=== PATIENT | male | born 1950 | race Caucasian/White ===

== ENCOUNTER 2017-03-09 12:15 | Emergency (ER) | payer MEDICARE ==
[~2017-03-09] VITALS: Ht 182.9 cm; Wt 80.7 kg
[~2017-03-09 12:15] MED LIST: ASPI325 PO; Aspir 8181 MG PO; Caffeine200 MG PO; Cardizem LA240 MG PO
[2017-03-09 12:48] LABS: BASOPHILS ABSOLUTE AUTO 0.07 K/mm3 (0.00-0.23); BASOPHILS PERCENT AUTO 1 % (0-2); EOSINOPHILS ABSOLUTE AUTO 0.16 K/mm3 (0.00-0.68); EOSINOPHILS PERCENT AUTO 1 % (0-6); Hemoglobin 14.6 g/dL (13.5-17.5); IMMATURE GRAN ABSOLUTE AUTO 0.09 K/mm3 (0.00-0.10); IMMATURE GRAN PERCENT AUTO 1 % (0-1); LYMPHOCYTES ABSOLUTE AUTO 2.49 K/mm3 (0.84-5.20); LYMPHOCYTES PERCENT AUTO 22 % (21-46); MONOCYTES ABSOLUTE AUTO 1.01 K/mm3 (0.16-1.47); MONOCYTES PERCENT AUTO 9 % (4-13); Mean Corpuscular HGB Conc 32.4 g/dL (31.5-36.5); Mean Corpuscular Volume 102 fL (80-100); Mean Platelet Volume 11.2 fL (9.1-12.4); NEUTROPHILS ABSOLUTE AUTO 7.42 K/mm3 (1.96-9.15); NEUTROPHILS PERCENT AUTO 66 % (41-73); Platelet Count 179 K/mm3 (150-400); RDW Coefficient Variation 13.1 % (11.7-14.2); RDW Standard Deviation 49.2 fL (35.1-46.3); Red Blood Cell Count 4.42 M/mm3 (4.30-5.90); White Blood Cell Count 11.24 K/mm3 (4.00-11.30)
[2017-03-09 13:00] LABS: Alanine Aminotransfer (ALT/SGP 18 U/L (12-78); Albumin, Blood 4.2 g/dL (3.4-5.0); Albumin/Globulin Ratio 1.1 (0.8-1.8); Alk Phos 106 U/L (50-136); Anion Gap 16 mmol/L (6-16); Aspartate Aminotrans (AST/SGOT 13 U/L (12-37); Bilirubin, Total 0.4 mg/dL (0.1-1.0); Blood Urea Nitrogen 43 mg/dL (8-24); Bun/Creatinine Ratio 15.8 (12.0-20.0); CO2, Blood 16 mmol/L (21-32); Calcium, Blood 8.9 mg/dL (8.5-10.1); Chloride, Blood 108 mmol/L (98-108); Creatinine, Blood 2.73 mg/dL (0.60-1.20); Ethanol (Alcohol), Blood, Med 111 mg/dL; Globulin, Blood 3.9 g/dL (2.2-4.0); Glomerular Filtration Rate 25 (60-); Glucose, Blood 105 mg/dL (70-99); Potassium, Blood 3.9 mmol/L (3.5-5.5); Sodium, Blood 140 mmol/L (136-145); Total Protein, Blood 8.1 g/dL (6.4-8.2); Troponin I <0.015 ng/mL (0.000-0.040)
[2017-03-09 13:36] LABS: Magnesium, Blood 2.5 mg/dL (1.6-2.4)
[2017-12-08] MEDS ORDERED: HYDHCL25 PO (17:41)
[2017-12-08] MEDS ORDERED: LITH300C PO (17:42)
[2017-12-08] MEDS ORDERED: TRAZ50 PO (17:44)
[2018-01-20] MEDS ORDERED: ACET500 (13:20)
[2018-01-20] MEDS ORDERED: RENAL-VITE TAB0.8 MG (13:21)
[2018-01-20] MEDS ORDERED: Calcium Acetat667 MG PO (13:22)
[2018-01-20] MEDS ORDERED: Percocet 5-3251 EACH PO (15:44)
== END 2017-03-09 16:04 | disposition home or self-care (01) ==
LOC: ER 12:15
PROVIDERS: Emergency Medicine
DX: S00.01XA Abrasion of scalp, initial encounter (principal); I48.0 Paroxysmal atrial fibrillation; R55 Syncope and collapse; F10.129 Alcohol abuse with intoxication, unspecified; Y90.5 Blood alcohol level of 100-119 mg/100 ml; R79.89 Other specified abnormal findings of blood chemistry; W22.8XXA Striking against or struck by other objects, initial encounter; Z91.018 Allergy to other foods; Z79.82 Long term (current) use of aspirin
CPT/HCPCS: 70450; 71045; 80053; 83735; 83880; 84484; 85025; 93005; 93010; 96361; 96374; 99284; G0480; J7030

== ENCOUNTER 2017-11-10 13:59 | Inpatient (IN) | payer MEDICARE ==
[~2017-11-10] VITALS: Ht 172.7 cm; Wt 66.2 kg
[2017-11-10] MEDS ORDERED: METO25ER PO (14:53)
[2017-11-10] MEDS ORDERED: Non-Aspirin Ex500 M1 PO (14:53)
[2017-11-10 15:06] LABS: Source, Urine Clean Catch
[2017-11-10 15:13] LABS: BASOPHILS ABSOLUTE AUTO 0.03 K/mm3 (0.00-0.23); BASOPHILS PERCENT AUTO 1 % (0-2); EOSINOPHILS ABSOLUTE AUTO 0.46 K/mm3 (0.00-0.68); EOSINOPHILS PERCENT AUTO 8 % (0-6); Hematocrit 30.2 % (37.0-53.0); Hemoglobin 9.3 g/dL (13.5-17.5); IMMATURE GRAN ABSOLUTE AUTO 0.03 K/mm3 (0.00-0.10); IMMATURE GRAN PERCENT AUTO 1 % (0-1); LYMPHOCYTES ABSOLUTE AUTO 1.03 K/mm3 (0.84-5.20); LYMPHOCYTES PERCENT AUTO 18 % (21-46); MONOCYTES ABSOLUTE AUTO 0.58 K/mm3 (0.16-1.47); MONOCYTES PERCENT AUTO 10 % (4-13); Mean Corpuscular HGB 31.5 pg (26.0-34.0); Mean Corpuscular HGB Conc 30.8 g/dL (31.5-36.5); Mean Corpuscular Volume 102 fL (80-100); NEUTROPHILS ABSOLUTE AUTO 3.76 K/mm3 (1.96-9.15); NEUTROPHILS PERCENT AUTO 64 % (41-73); Platelet Count 157 K/mm3 (150-400); RDW Coefficient Variation 17.4 % (11.7-14.2); RDW Standard Deviation 65.9 fL (35.1-46.3); Red Blood Cell Count 2.95 M/mm3 (4.30-5.90); White Blood Cell Count 5.89 K/mm3 (4.00-11.30)
[2017-11-10 15:15] LABS: Appearance, Urine Clear (Clear); Bilirubin, Urine Neg (Neg); Blood, Urine 5+ (Neg); Color, Urine Yellow (P-Yellow); Glucose Qualitative, Urine 2+ (Neg); Ketones, Urine Neg (Neg); Leukocyte Esterase, Urine 2+ (Neg); Nitrite, Urine Neg (Neg); Protein, Urine 3+ (Neg); Specific Gravity, Urine 1.015 (1.003-1.022); Urobilinogen, Urine NORM (Normal)
[2017-11-10 15:27] LABS: International Normalized Ratio 1.07
[2017-11-10 15:29] LABS: Red Blood Cells, Urine TNTC /hpf (0-2)
[2017-11-10 15:30] LABS: Bacteria Not Seen /hpf; Squamous Epithelial Cells Not Seen /hpf (Few)
[2017-11-10 15:34] LABS: Magnesium, Blood 2.1 mg/dL (1.6-2.4)
[2017-11-10 15:35] LABS: Albumin, Blood 3.8 g/dL (3.4-5.0); Albumin/Globulin Ratio 1.1 (0.8-1.8); Bilirubin, Total 0.2 mg/dL (0.1-1.0); Bun/Creatinine Ratio 20.9 (12.0-20.0); Calcium, Blood 7.2 mg/dL (8.5-10.1); Creatinine, Blood 5.64 mg/dL (0.60-1.20); Globulin, Blood 3.6 g/dL (2.2-4.0); Phosphorus, Blood 7.5 mg/dL (2.5-4.9); Potassium, Blood 4.7 mmol/L (3.5-5.5); Total Protein, Blood 7.4 g/dL (6.4-8.2)
[2017-11-10 17:37] LABS: BASOPHILS ABSOLUTE AUTO 0.03 K/mm3 (0.00-0.23); BASOPHILS PERCENT AUTO 1 % (0-2); EOSINOPHILS ABSOLUTE AUTO 0.51 K/mm3 (0.00-0.68); EOSINOPHILS PERCENT AUTO 8 % (0-6); Hematocrit 27.2 % (37.0-53.0); Hemoglobin 8.7 g/dL (13.5-17.5); IMMATURE GRAN ABSOLUTE AUTO 0.02 K/mm3 (0.00-0.10); IMMATURE GRAN PERCENT AUTO 0 % (0-1); LYMPHOCYTES ABSOLUTE AUTO 1.16 K/mm3 (0.84-5.20); LYMPHOCYTES PERCENT AUTO 19 % (21-46); MONOCYTES ABSOLUTE AUTO 0.81 K/mm3 (0.16-1.47); MONOCYTES PERCENT AUTO 13 % (4-13); Mean Corpuscular HGB 32.2 pg (26.0-34.0); Mean Corpuscular Volume 101 fL (80-100); Mean Platelet Volume 10.8 fL (9.1-12.4); NEUTROPHILS PERCENT AUTO 59 % (41-73); Platelet Count 144 K/mm3 (150-400); RDW Coefficient Variation 17.3 % (11.7-14.2); RDW Standard Deviation 64.1 fL (35.1-46.3); White Blood Cell Count 6.13 K/mm3 (4.00-11.30)
[2017-11-10 19:08] LABS: Albumin, Blood 3.4 g/dL (3.4-5.0); Anion Gap 11 mmol/L (6-16); Blood Urea Nitrogen 119 mg/dL (8-24); CO2, Blood 17 mmol/L (21-32); Calcium, Blood 7.5 mg/dL (8.5-10.1); Chloride, Blood 113 mmol/L (98-108); Creatinine, Blood 5.67 mg/dL (0.60-1.20); Glomerular Filtration Rate 11 (60-); Glucose, Blood 61 mg/dL (70-99); Phosphorus, Blood 6.6 mg/dL (2.5-4.9); Potassium, Blood 4.9 mmol/L (3.5-5.5); Sodium, Blood 141 mmol/L (136-145)
[2017-11-11 05:06] LABS: Hematocrit 28.6 % (37.0-53.0); Hemoglobin 9.3 g/dL (13.5-17.5)
[2017-11-11 05:36] LABS: Albumin, Blood 3.5 g/dL (3.4-5.0); Anion Gap 13 mmol/L (6-16); Blood Urea Nitrogen 119 mg/dL (8-24); Bun/Creatinine Ratio 20.5 (12.0-20.0); CO2, Blood 18 mmol/L (21-32); Calcium, Blood 7.1 mg/dL (8.5-10.1); Chloride, Blood 112 mmol/L (98-108); Creatinine, Blood 5.81 mg/dL (0.60-1.20); Glomerular Filtration Rate 10 (60-); Glucose, Blood 88 mg/dL (70-99); Potassium, Blood 4.7 mmol/L (3.5-5.5); Sodium, Blood 143 mmol/L (136-145)
[2017-11-11 06:01] LABS: Phosphorus, Blood 8.6 mg/dL (2.5-4.9)
[2017-11-12 06:04] LABS: BASOPHILS ABSOLUTE AUTO 0.04 K/mm3 (0.00-0.23); BASOPHILS PERCENT AUTO 1 % (0-2); EOSINOPHILS ABSOLUTE AUTO 0.45 K/mm3 (0.00-0.68); EOSINOPHILS PERCENT AUTO 7 % (0-6); Hematocrit 30.5 % (37.0-53.0); Hemoglobin 9.9 g/dL (13.5-17.5); IMMATURE GRAN ABSOLUTE AUTO 0.02 K/mm3 (0.00-0.10); IMMATURE GRAN PERCENT AUTO 0 % (0-1); LYMPHOCYTES ABSOLUTE AUTO 1.19 K/mm3 (0.84-5.20); LYMPHOCYTES PERCENT AUTO 19 % (21-46); MONOCYTES PERCENT AUTO 11 % (4-13); Mean Corpuscular HGB 31.5 pg (26.0-34.0); Mean Corpuscular HGB Conc 32.5 g/dL (31.5-36.5); Mean Platelet Volume 10.6 fL (9.1-12.4); NEUTROPHILS ABSOLUTE AUTO 3.94 K/mm3 (1.96-9.15); NEUTROPHILS PERCENT AUTO 62 % (41-73); Platelet Count 145 K/mm3 (150-400); RDW Coefficient Variation 17.5 % (11.7-14.2); RDW Standard Deviation 62.6 fL (35.1-46.3); Red Blood Cell Count 3.14 M/mm3 (4.30-5.90); White Blood Cell Count 6.34 K/mm3 (4.00-11.30)
[2017-11-12 06:09] LABS: Mean Corpuscular Volume 97 fL (80-100)
[2017-11-12 06:22] LABS: Bun/Creatinine Ratio 15.3 (12.0-20.0); Calcium, Blood 7.2 mg/dL (8.5-10.1); Creatinine, Blood 5.11 mg/dL (0.60-1.20); Potassium, Blood 3.8 mmol/L (3.5-5.5)
[2017-11-14 05:47] LABS: Bun/Creatinine Ratio 11.5 (12.0-20.0); Calcium, Blood 8.3 mg/dL (8.5-10.1); Creatinine, Blood 4.53 mg/dL (0.60-1.20); Potassium, Blood 3.9 mmol/L (3.5-5.5)
== END 2017-11-14 12:05 | disposition home or self-care (01) | DRG 640 ==
LOC: ER 13:59 → MEDS 14:32 → ENPENDDIS 11-14 11:33 → MEDS 11-14 12:05
PROVIDERS: Emergency Medicine; Hospitalist; Internal Medicine; Surgery
PROC: 3E0234Z Introduction of Serum, Toxoid and Vaccine into Muscle, Percutaneous Approach (ICD-10-PCS; 2017-11-10)
PROC: B5131ZA Fluoroscopy of Right Jugular Veins using Low Osmolar Contrast, Guidance (ICD-10-PCS; 2017-11-11)
PROC: 5A1D70Z Performance of Urinary Filtration, Intermittent, Less than 6 Hours Per Day (ICD-10-PCS; 2017-11-11)
PROC: 05HM33Z Insertion of Infusion Device into Right Internal Jugular Vein, Percutaneous Approach (ICD-10-PCS; principal; 2017-11-11 12:45)
PROC: 5A1D70Z Performance of Urinary Filtration, Intermittent, Less than 6 Hours Per Day (ICD-10-PCS; 2017-11-12)
PROC: 5A1D70Z Performance of Urinary Filtration, Intermittent, Less than 6 Hours Per Day (ICD-10-PCS; 2017-11-13)
DX: E87.5 Hyperkalemia (principal); N18.6 End stage renal disease; I12.0 Hypertensive chronic kidney disease with stage 5 chronic kidney disease or end stage renal disease; N13.2 Hydronephrosis with renal and ureteral calculous obstruction; F17.210 Nicotine dependence, cigarettes, uncomplicated; D63.1 Anemia in chronic kidney disease; E55.9 Vitamin D deficiency, unspecified; E83.39 Other disorders of phosphorus metabolism; Z23 Encounter for immunization; Z86.718 Personal history of other venous thrombosis and embolism; Z59.0 Homelessness
CPT/HCPCS: 36415; 71045; 77001; 80048; 80053; 80069; 81001; 83735; 84100; 85014; 85018; 85025; 85610; 85730; 87086; 90686; 93005; 93010; 96372; 96374; 96375; 96376; 99285-25; C1750; G0008; G0378; J0610; J0690; J1644; J1650; J1815; J1940; J2001; J2250; J2405; J3010; J7030

== ENCOUNTER 2017-11-22 16:43 | Emergency (ER) | payer MEDICARE ==
[~2017-11-22] VITALS: Ht 172.7 cm; Wt 73.5 kg
[~2017-11-22 16:43] MED LIST changes: +METO25ER PO; +Non-Aspirin Ex500 M1 PO
[2017-11-22] MEDS ORDERED: Cyclobenzaprine5 MG PO (20:01)
== END 2017-11-22 20:36 | disposition home or self-care (01) ==
LOC: ER 16:43
DX: S16.1XXA Strain of muscle, fascia and tendon at neck level, initial encounter (principal); I48.91 Unspecified atrial fibrillation; F17.210 Nicotine dependence, cigarettes, uncomplicated; Z91.048 Other nonmedicinal substance allergy status; Z79.899 Other long term (current) drug therapy; X58.XXXA Exposure to other specified factors, initial encounter
CPT/HCPCS: 72040; 99284-25

== ENCOUNTER 2018-02-17 15:07 | Inpatient (IN) | payer MEDICARE ==
[~2018-02-17] VITALS: Ht 172.7 cm; Wt 75.6 kg
[~2018-02-17 15:07] MED LIST changes: +ACET500 PO; +Calcium Acetat667 MG PO; +Cyclobenzaprine5 MG PO; +HYDHCL25 PO; +LITH300C PO; +Percocet 5-3251 EACH PO; +RENAL-VITE TAB0.8 MG; +TRAZ50 PO
[2018-02-17 15:33] LABS: Hematocrit 32.7 % (37.0-53.0); Hemoglobin 10.5 g/dL (13.5-17.5); Mean Corpuscular HGB 31.8 pg (26.0-34.0); Mean Corpuscular HGB Conc 32.1 g/dL (31.5-36.5); Mean Corpuscular Volume 99 fL (80-100); Mean Platelet Volume 10.4 fL (9.1-12.4); Platelet Count 160 K/mm3 (150-400); RDW Coefficient Variation 14.6 % (11.7-14.2); RDW Standard Deviation 53.2 fL (35.1-46.3); White Blood Cell Count 7.27 K/mm3 (4.00-11.30)
[2018-02-17 15:52] LABS: Albumin, Blood 2.9 g/dL (3.4-5.0); Albumin/Globulin Ratio 0.7 (0.8-1.8); Bilirubin, Total 0.5 mg/dL (0.1-1.0); Calcium, Blood 8.1 mg/dL (8.5-10.1); Creatinine, Blood 4.32 mg/dL (0.60-1.20); Globulin, Blood 3.9 g/dL (2.2-4.0); Total Protein, Blood 6.8 g/dL (6.4-8.2)
[2018-02-17 16:08] LABS: BASOPHILS PERCENT MAN 0 % (0-2); EOSINOPHILS PERCENT MAN 0 % (0-6); LYMPHOCYTES ABSOLUTE MAN 0.29 K/mm3 (0.84-5.20); LYMPHOCYTES PERCENT MAN 4 % (21-46); MONOCYTES ABSOLUTE MAN 0.07 K/mm3 (0.16-1.47); MONOCYTES PERCENT MAN 1 % (4-13); SEG NEUTROPHILS PERCENT MAN 95 % (41-73); TOTAL CELLS COUNTED 100
[2018-02-17 16:17] LABS: International Normalized Ratio 1.14; Prothrombin Time Results 11.7 Sec (9.7-11.5)
[2018-02-17 16:34] LABS: Influenza A Negative (NEGATIVE); Influenza B Negative (NEGATIVE)
--- NOTE | 2018-02-17 17:46 | NUR ---
Report received from DAYLIGHT DRILLER at this time. Anticipate pt arrival to PCU 1 shortly.
--- NOTE | 2018-02-17 18:10 | NUR ---
Pt arrived to PCU 1 from ED. Frequent, non-productive cough noted. STates he has had the cough for 2 -3 months since he stopped smoking. Afib with rate of 139 by telemetry monitoring. Blood pressure stable. Pt reports that he does not feel any abnormal fluttering or pain/discomfort in his chest. No dyspnea.
[2018-02-17 18:42] LABS: Source, Urine Voided
[2018-02-17 18:52] LABS: Bilirubin, Urine Neg (Neg); Blood, Urine 4+ (Neg); Glucose Qualitative, Urine 3+ (Neg); Ketones, Urine 1+ (Neg); Leukocyte Esterase, Urine 1+ (Neg); Nitrite, Urine Neg (Neg); Protein, Urine 3+ (Neg); Urobilinogen, Urine NORM (Normal)
[2018-02-17 18:57] LABS: Appearance, Urine Clear (Clear); Color, Urine Yellow (P-Yellow)
[2018-02-17 18:58] LABS: Bacteria Few /hpf; Squamous Epithelial Cells Not Seen /hpf (Few)
--- NOTE | 2018-02-17 21:47 | NUR ---
PM NOTE. ASSUMED CARE OF PT APROX 1900. PT IS A&Ox4, PLEASENT AND COOPERATIVE WITH CARE. PT WAS ADMITTED FOR AFIB RVR AND SEPSIS. PT'S HR HAS TRENDED DOWN TO AFIB IN THE 90'S PER HOSIERY KNITTER. TELE INTACT, BP 102/58. NO EDEMA NOTED. PT'S PERMACATH C/D/I, NO REDNESS, PAIN OR SWELLING NOTED. L/S CLEAR T/O, PT HAS OCC PRODUCTIVE COUGH. BT PRESENT AND HYPERACTIVE, ABD IS SOFT NONTENDER TO PALP. PT HAS KYPHOSIS REQUIRING EXTRA PILLOWS TO SUPPORT PT'S NECK/BACK. PT VOIDS SMALL AMOUNTS INTO URINAL WITHOUT ISSUE, PT HAS UTI WITH CULTURES PENDING (SEE LABS.) CALL LIGHT IN REACH, BED IS LOCKED AND LOW, WILL CONTINUE TO MONITOR.
[2018-02-17 22:16] LABS: Adenovirus Not Detected (NOT DETECT); Bordetella pertussis Not Detected (NOT DETECT); Chlamydophila pneumoniae Not Detected (NOT DETECT); Coronavirus 229E Not Detected (NOT DETECT); Coronavirus HKU1 Not Detected (NOT DETECT); Coronavirus NL63 Not Detected (NOT DETECT); Coronavirus OC43 Not Detected (NOT DETECT); Human Metapneumovirus Not Detected (NOT DETECT); Human Rhinovirus/Enterovirus Not Detected (NOT DETECT); Influenza A/2009-H1 Not Detected (NOT DETECT); Influenza A/H1 Not Detected (NOT DETECT); Influenza A/H3 Not Detected (NOT DETECT); Influenza B Not Detected (NOT DETECT); Mycoplasma pneumoniae Not Detected (NOT DETECT); Parainfluenza Virus 1 Not Detected (NOT DETECT); Parainfluenza Virus 2 Not Detected (NOT DETECT); Parainfluenza Virus 3 Not Detected (NOT DETECT); Parainfluenza Virus 4 Not Detected (NOT DETECT); Respiratory Syncytial Virus Not Detected (NOT DETECT)
[2018-02-17 23:49] LABS: Influenza A Not Detected (NOT DETECT)
[2018-02-18 04:37] LABS: BASOPHILS ABSOLUTE AUTO 0.02 K/mm3 (0.00-0.23); BASOPHILS PERCENT AUTO 0 % (0-2); EOSINOPHILS ABSOLUTE AUTO 0.19 K/mm3 (0.00-0.68); EOSINOPHILS PERCENT AUTO 2 % (0-6); Hemoglobin 9.1 g/dL (13.5-17.5); IMMATURE GRAN ABSOLUTE AUTO 0.05 K/mm3 (0.00-0.10); IMMATURE GRAN PERCENT AUTO 1 % (0-1); LYMPHOCYTES ABSOLUTE AUTO 1.39 K/mm3 (0.84-5.20); LYMPHOCYTES PERCENT AUTO 14 % (21-46); MONOCYTES ABSOLUTE AUTO 1.45 K/mm3 (0.16-1.47); MONOCYTES PERCENT AUTO 14 % (4-13); Mean Corpuscular HGB 31.1 pg (26.0-34.0); Mean Corpuscular HGB Conc 30.3 g/dL (31.5-36.5); Mean Platelet Volume 11.2 fL (9.1-12.4); NEUTROPHILS ABSOLUTE AUTO 7.08 K/mm3 (1.96-9.15); NEUTROPHILS PERCENT AUTO 70 % (41-73); Platelet Count 133 K/mm3 (150-400); RDW Coefficient Variation 14.8 % (11.7-14.2); RDW Standard Deviation 55.3 fL (35.1-46.3); Red Blood Cell Count 2.93 M/mm3 (4.30-5.90); White Blood Cell Count 10.18 K/mm3 (4.00-11.30)
[2018-02-18 04:43] LABS: Mean Corpuscular Volume 102 fL (80-100)
[2018-02-18 04:59] LABS: Albumin, Blood 2.6 g/dL (3.4-5.0); Albumin/Globulin Ratio 0.8 (0.8-1.8); Bilirubin, Total 0.4 mg/dL (0.1-1.0); Bun/Creatinine Ratio 11.5 (12.0-20.0); Calcium, Blood 7.7 mg/dL (8.5-10.1); Creatinine, Blood 5.31 mg/dL (0.60-1.20); Globulin, Blood 3.3 g/dL (2.2-4.0); Magnesium, Blood 2.4 mg/dL (1.6-2.4); Potassium, Blood 4.4 mmol/L (3.5-5.5); Total Protein, Blood 5.9 g/dL (6.4-8.2)
--- NOTE | 2018-02-18 06:43 | NUR ---
SHIFT SUMMARY. NO ACUTE CHANGES NOTED. PT DENIES CHEST PAIN/PRESSURE, SOB OR N/V. VS HAVE BEEN STABLE T/O SHIFT. PT HAS BEEN A 1 SBA W/FWW TO THE BATHROOM. PT'S HR HAS BEEN AFIB 90'S. CALL LIGHT IN REACH, BED IS LOCKED AND LOW, WILL CONTINUE TO MONITOR UNTIL REPORT IS GIVEN TO ONCOMING RN.
--- NOTE | 2018-02-18 08:28 | NUR ---
NURSING PCU DAYSHIFT SUMMARY: Assumed care of pt at approx 0700. A/O, pleasant, cooperative w/care, mildly QUILEUTE. Denies any pain/discomfort. Mild general weakness noted. Skin is fragile w/no breakdown seen. Tele in place, afib w/HR 100-110, no c/o CP/pressure, BP stable, no noted edema. L/S w/bibasilar crackles, O2 sat upper 90's on RA, mild dyspnea w/exertion, occ cough w/pt states is not productive at this time. Abd SNT, BT+, last BM today, voiding small amts of urine w/o difficulty. PIV x1, s/l. No s/s of acute distress at this time. Pt ambulates in room independently w/o difficulty using FWW. Denies any current needs or questions regarding plan of care. Call light in reach and pt is able to use w/o difficulty. Awaiting rounding from PMD, cont to monitor for any changes.
--- NOTE | 2018-02-18 11:25 | NUR ---
NURSING PCU DAYSHIFT TRANSFER SUMMARY: No acute changes noted t/o the a.m. Seen by PMD, transfer to medical unit w/o tele d/o received. Telephone report provided to accepting RN, denied additional questions. Pt is currently receiving HD in dialysis room, will xfer to medical unit when complete. Belongings have been sent to pt's new room assignment.
--- NOTE | 2018-02-18 13:12 | NUR ---
PT ARRIVED TO UNIT. PT ARRIVED TO UNIT AT 1300. PT IN STABLE CONDITION. WILL CONTINUE TO MONITOR.
--- NOTE | 2018-02-18 13:43 | NUR ---
Echocardiogram completed.
--- NOTE | 2018-02-18 16:59 | NUR ---
SHIFT SUMMARY NO CHANGES IN ASSESSMENT AT THIS TIME. VSS. PT RESTING IN BED. USES URINAL OR WALKS TO BATHROOM NEEDED. WILL CONTINUE TO MONITOR PT UNTIL TURNOVER IS COMPLETE.
--- NOTE | 2018-02-19 01:43 | NUR ---
DR. ROSE CALLED AND INFORMED OF BLOOD CULTURE RESULTS. PT RESULTS ARE GRAM NEGATIVE BACILLI. DR ORDERED TO CONTINUE USING PRESCRIBED ANTIBIOTIC TX.
--- NOTE | 2018-02-19 04:12 | NUR ---
SHIFT SUMMARY NO ISSUES NOTED. PT WENT TO SLEEP EARLY. PT IS AGREEABLE AND PLESANT. PT HAD NO COMPLAINTS. PT IS SLEEPING AND BREATHING EASY. CALL LIGHT IN REACH.
[2018-02-19 05:00] LABS: Hematocrit 33.8 % (37.0-53.0); Hemoglobin 10.4 g/dL (13.5-17.5)
[2018-02-19 05:39] LABS: Albumin, Blood 2.8 g/dL (3.4-5.0); Anion Gap 10 mmol/L (6-16); Blood Urea Nitrogen 53 mg/dL (8-24); CO2, Blood 28 mmol/L (21-32); Calcium, Blood 8.5 mg/dL (8.5-10.1); Chloride, Blood 102 mmol/L (98-108); Creatinine, Blood 5.28 mg/dL (0.60-1.20); Glomerular Filtration Rate 12 (60-); Glucose, Blood 103 mg/dL (70-99); Magnesium, Blood 2.5 mg/dL (1.6-2.4); Phosphorus, Blood 5.6 mg/dL (2.5-4.9); Potassium, Blood 4.4 mmol/L (3.5-5.5); Sodium, Blood 140 mmol/L (136-145)
--- NOTE | 2018-02-19 09:51 | NUR ---
DIALYSIS CALLED FLOOR RN ABOUT BRINGING PT DOWN TO THE DIALYSIS. THE PT SAID HE DIDN'T WANT TO RUN TODAY. SAID HE RAN 2 DAYS IN ROW AND FELT GOOD. HE'S K IS 4.4, NA 140.
--- NOTE | 2018-02-19 16:56 | NUR ---
Assist with pt care and contact
--- NOTE | 2018-02-19 18:03 | NUR ---
DIALYSIS 2 SETS OF BLOOD CULTURES DRAWN FROM PT'S CATH PER PROTOCAL AND TAKEN TO THE LAB.
--- NOTE | 2018-02-19 19:34 | NUR ---
SUMMARY- PT WAS CONFUSED THIS AM- THOUGHT HE WAS IN A HOTEL AND WHEN HE FOUND OUT HE WAS IN THE HOSPITAL, WAS UPSET THAT HE COULDN'T REMEMBER WHERE HE WAS LIVING. THROUGH INVESTIGATION, RN FOUND HIM TO BE RESIDING AT [facility]. PT CALLED TO ENSURE HIS BELONGINGS WERE SAFE AND NOTIFIED THEM OF HIS STATUS. CALLED PALLIATIVE CARE WHO ORDERED SOCIAL SERVICE TO AID IN PLACEMENT AFTER HOSP FOR MEMORY ISSUES. PT GOT UP AND SHOWERED INDEPENDANT WITH SET UP. TOLERATING FOOD AND FLUIDS. PT HAD BLOOD CX DRAWN AND PERMACATH CX THIS PM BY PADMA FERNANDEZ DENTAL BILLING SPECIALIST. REPORT GIVEN TO NOCS.
--- NOTE | 2018-02-20 04:21 | NUR ---
SHIFT SUMMARY PT HAS BEEN SLEEPING WELL DURING SHIFT. LAB HAS CALLED AND INFORMED OF BLOOD CULTURES HAVING GRAM NEG BACILLI. DR. ROSE WAS NOTIFIED SHIFT BEFORE AND ORDERED CONTINUE CURRENT ABX TX. PT DID WAKE UP HUNGRY AND WAS GIVEN A SNACK. PT HAD NO ACUTE CHANGES OR ISSUES. PT CURRENTLY SLEEPING AND BREATHING EASY. CALL LIGHT IN REACH.
[2018-02-20 04:50] LABS: BASOPHILS ABSOLUTE AUTO 0.04 K/mm3 (0.00-0.23); BASOPHILS PERCENT AUTO 1 % (0-2); EOSINOPHILS ABSOLUTE AUTO 0.43 K/mm3 (0.00-0.68); EOSINOPHILS PERCENT AUTO 5 % (0-6); Hematocrit 34.1 % (37.0-53.0); Hemoglobin 10.5 g/dL (13.5-17.5); IMMATURE GRAN ABSOLUTE AUTO 0.05 K/mm3 (0.00-0.10); IMMATURE GRAN PERCENT AUTO 1 % (0-1); LYMPHOCYTES ABSOLUTE AUTO 1.79 K/mm3 (0.84-5.20); LYMPHOCYTES PERCENT AUTO 21 % (21-46); MONOCYTES ABSOLUTE AUTO 0.91 K/mm3 (0.16-1.47); MONOCYTES PERCENT AUTO 11 % (4-13); Mean Corpuscular HGB 31.3 pg (26.0-34.0); Mean Corpuscular HGB Conc 30.8 g/dL (31.5-36.5); Mean Corpuscular Volume 102 fL (80-100); Mean Platelet Volume 10.7 fL (9.1-12.4); NEUTROPHILS PERCENT AUTO 62 % (41-73); Platelet Count 164 K/mm3 (150-400); RDW Coefficient Variation 14.3 % (11.7-14.2); RDW Standard Deviation 53.8 fL (35.1-46.3); Red Blood Cell Count 3.35 M/mm3 (4.30-5.90); White Blood Cell Count 8.42 K/mm3 (4.00-11.30)
[2018-02-20 05:11] LABS: Alanine Aminotransfer (ALT/SGP 46 U/L (12-78); Albumin, Blood 2.8 g/dL (3.4-5.0); Albumin/Globulin Ratio 0.7 (0.8-1.8); Alk Phos 107 U/L (50-136); Anion Gap 10 mmol/L (6-16); Aspartate Aminotrans (AST/SGOT 12 U/L (12-37); Bilirubin, Total 0.3 mg/dL (0.1-1.0); Blood Urea Nitrogen 65 mg/dL (8-24); CO2, Blood 24 mmol/L (21-32); Calcium, Blood 8.4 mg/dL (8.5-10.1); Chloride, Blood 103 mmol/L (98-108); Creatinine, Blood 6.53 mg/dL (0.60-1.20); Globulin, Blood 3.9 g/dL (2.2-4.0); Glomerular Filtration Rate 9 (60-); Glucose, Blood 92 mg/dL (70-99); Magnesium, Blood 2.6 mg/dL (1.6-2.4); Phosphorus, Blood 6.4 mg/dL (2.5-4.9); Potassium, Blood 4.8 mmol/L (3.5-5.5); Sodium, Blood 137 mmol/L (136-145); Total Protein, Blood 6.7 g/dL (6.4-8.2)
--- NOTE | 2018-02-20 15:56 | NUR ---
PATIENT A/OX4 THIS SHIFT, FOREGETFUL AT TIMES. UP WITH SBA. USES URINAL. DIALYSIS KAREN TODAY AT BEDSIDE. CONSULT CALLED TO DR. GUZMAN TO REMOVE PERMCATH AND REPLACE DUE TO SEPSIS. BLOOD CX DRAWN AGAIN THIS SHIFT. 20G IV TO R FA WNL AND SL. RECEIVING ZOSYN TO TREAT INFECTION. VSS, ON RA. NO ACUTE CHANGES THIS SHIFT.
--- NOTE | 2018-02-21 04:38 | NUR ---
SHIFT SUMMARY: PT IS ALERT AND ORIENTED. PT IS CALM AND COOPERATIVE WITH CARE. PT CALLS APPROPRIATELY. PT IS A STANDBY ASSIST TO THE BATHROOM. DR. GUZMAN IN TO REMOVE DIALYSIS CATHETER, ASSISTED WITH PROCEDURE, REMOVED WNL, PT TOLERATED WELL. PT DENIES PAIN, NAUSEA, VOMITING, AND SOB. PT SLEPT MUCH OF THE NIGHT. NO ACUTE CHANGES OR COMPLICATIONS. WILL REPORT TO DAY NURSE.
[2018-02-21 05:04] LABS: BASOPHILS ABSOLUTE AUTO 0.04 K/mm3 (0.00-0.23); BASOPHILS PERCENT AUTO 1 % (0-2); EOSINOPHILS ABSOLUTE AUTO 0.33 K/mm3 (0.00-0.68); EOSINOPHILS PERCENT AUTO 4 % (0-6); Hematocrit 32.6 % (37.0-53.0); IMMATURE GRAN ABSOLUTE AUTO 0.11 K/mm3 (0.00-0.10); IMMATURE GRAN PERCENT AUTO 1 % (0-1); LYMPHOCYTES ABSOLUTE AUTO 1.81 K/mm3 (0.84-5.20); LYMPHOCYTES PERCENT AUTO 23 % (21-46); MONOCYTES ABSOLUTE AUTO 0.78 K/mm3 (0.16-1.47); MONOCYTES PERCENT AUTO 10 % (4-13); Mean Corpuscular HGB 31.5 pg (26.0-34.0); Mean Corpuscular HGB Conc 30.7 g/dL (31.5-36.5); Mean Corpuscular Volume 103 fL (80-100); Mean Platelet Volume 10.7 fL (9.1-12.4); NEUTROPHILS PERCENT AUTO 61 % (41-73); Platelet Count 161 K/mm3 (150-400); RDW Coefficient Variation 14.4 % (11.7-14.2); RDW Standard Deviation 54.2 fL (35.1-46.3); Red Blood Cell Count 3.17 M/mm3 (4.30-5.90); White Blood Cell Count 7.87 K/mm3 (4.00-11.30)
[2018-02-21 05:23] LABS: Alanine Aminotransfer (ALT/SGP 32 U/L (12-78); Albumin, Blood 2.8 g/dL (3.4-5.0); Albumin/Globulin Ratio 0.7 (0.8-1.8); Alk Phos 100 U/L (50-136); Anion Gap 8 mmol/L (6-16); Aspartate Aminotrans (AST/SGOT 11 U/L (12-37); Bilirubin, Total 0.2 mg/dL (0.1-1.0); Blood Urea Nitrogen 57 mg/dL (8-24); Bun/Creatinine Ratio 9.8 (12.0-20.0); CO2, Blood 28 mmol/L (21-32); Calcium, Blood 8.3 mg/dL (8.5-10.1); Chloride, Blood 103 mmol/L (98-108); Creatinine, Blood 5.83 mg/dL (0.60-1.20); Globulin, Blood 3.8 g/dL (2.2-4.0); Glomerular Filtration Rate 10 (60-); Glucose, Blood 109 mg/dL (70-99); Magnesium, Blood 2.6 mg/dL (1.6-2.4); Phosphorus, Blood 6.2 mg/dL (2.5-4.9); Potassium, Blood 4.8 mmol/L (3.5-5.5); Sodium, Blood 139 mmol/L (136-145); Total Protein, Blood 6.6 g/dL (6.4-8.2)
--- NOTE | 2018-02-21 16:43 | NUR ---
SHIFT SUMMARY. THE PATIENT PRESENTED THIS MORNING WITH VITALS WNL, A&O TO SELF AND SOME SURROUNDINS, AND ANSWERS QUESTIONS APPROP. THE PATIENT STATED THAT HE WAS IS APPOINTED THAT HE NEEDED TO BE HERE AT LEAST TWO MORE DAYS. THE PATIENT IS RECEIVING IV ABX. THE PATIENT CALLS APPROP. AND IS NICE TO VISIT WITH. THE PATIENT IS RESTING AT THIS TIME, WILL CONTINUE TO MONITOR.
--- NOTE | 2018-02-22 04:14 | NUR ---
SHIFT SUMMARY NO CHANGES OVERNIGHT. PT HAS DENIED NEEDS. HE IS A/OX4, INDEPENDENT IN THE ROOM. HE DENIES PAIN. IV ABX INFUSED ORDERED. ASSESSMENT UNCHANGED. PENDING PERMACATH PLACEMENT BEFORE DISCHARGE AT THIS TIME. PT AWARE OF PLAN OF CARE. WILL CONTINUE TO MONITOR AND REPORT TO ONCOMING RN.
[2018-02-22 05:22] LABS: Hematocrit 32.8 % (37.0-53.0)
[2018-02-22 06:02] LABS: Albumin, Blood 2.8 g/dL (3.4-5.0); Anion Gap 10 mmol/L (6-16); Blood Urea Nitrogen 68 mg/dL (8-24); Bun/Creatinine Ratio 10.1 (12.0-20.0); CO2, Blood 23 mmol/L (21-32); Calcium, Blood 8.2 mg/dL (8.5-10.1); Chloride, Blood 105 mmol/L (98-108); Creatinine, Blood 6.76 mg/dL (0.60-1.20); Glomerular Filtration Rate 9 (60-); Glucose, Blood 98 mg/dL (70-99); Magnesium, Blood 2.6 mg/dL (1.6-2.4); Phosphorus, Blood 6.5 mg/dL (2.5-4.9); Potassium, Blood 4.8 mmol/L (3.5-5.5); Sodium, Blood 138 mmol/L (136-145)
--- NOTE | 2018-02-22 16:18 | NUR ---
SHIFT SUMMARY THE PATIENT PRESENTED THIS AM WITH CLEAR LUNGS, A&O X4, AND VITALS WNL. THE PATIENT CALLS APPROP. AND IS WAITING TO GO HOME, MAYBE TOMORROW. THE PATIENT IS INDEPENDENT IN HIS ROOM AND SPENDS MOST OF HIS TIME WATCHING TV. THE PATIENT IS RESTING AT THIS TIME, WILL CONTINUE TO MONITOR.
--- NOTE | 2018-02-23 04:27 | NUR ---
*SHIFT SUMMARY* PATIENT IS ALERT AND ORIENTED. PATIENT IS INDEPENDENT IN ROOM. PATIENT USES CALL LIGHT APPROPRIATELY. PATIENT USES URINAL AT BEDSIDE. PATIENT'S PLAN READS THAT IF PATIENT'S BLOOD CULTURES COME BACK NEGATIVE HE WILL DISCHARGE HOME. PATIENT IS EAGER TO BE DISCHARGED. PATIENT TAKES PILLS WHOLE. PATIENT'S DRESSING ON LEFT CHEST IS C/D/I. PATIENT REQUESTED TO HAVE SLEEPING PILL BEFORE BED. NO NEW CHANGES TO PATIENTS STATUS AT THIS TIME. CALL LIGHT WITHIN REACH. BED LOWERED AND LOCKED.
[2018-02-23 05:03] LABS: Hematocrit 36.4 % (37.0-53.0); Hemoglobin 11.3 g/dL (13.5-17.5)
[2018-02-23 05:34] LABS: Albumin, Blood 3.2 g/dL (3.4-5.0); Anion Gap 10 mmol/L (6-16); Blood Urea Nitrogen 83 mg/dL (8-24); Bun/Creatinine Ratio 10.9 (12.0-20.0); CO2, Blood 22 mmol/L (21-32); Calcium, Blood 8.2 mg/dL (8.5-10.1); Chloride, Blood 105 mmol/L (98-108); Creatinine, Blood 7.63 mg/dL (0.60-1.20); Glomerular Filtration Rate 8 (60-); Glucose, Blood 103 mg/dL (70-99); Magnesium, Blood 2.9 mg/dL (1.6-2.4); Phosphorus, Blood 7.5 mg/dL (2.5-4.9); Potassium, Blood 5.2 mmol/L (3.5-5.5); Sodium, Blood 137 mmol/L (136-145)
--- NOTE | 2018-02-23 10:23 | NUR ---
ATTEMPTING TO CALL CONSULT HAVE CALLED DR. IRENA TAVAREZ'S OFFICE NUMEROUS TIMES TO ARRANGE A CONSULT BUT THE PHONE HAS BEEN BUSY. I WILL CONTINUE TO TRY TO CALL.
--- NOTE | 2018-02-23 10:50 | NUR ---
PROVIDER CONSULT I DID GET CONSULT CALLED TO DR. TAVAREZ'S CONSULT LINE. THE ANSWERING MESSAGE STATED THAT DR. TAVAREZ WOULD NOT BE AVAILABLE UNTIL 02/27/2018. I NOTIFIED DR. FLETCHER OF THIS AT 1051 HRS.
--- NOTE | 2018-02-23 15:18 | NUR ---
PT RETRIEVED BY DAY SURGERY NURSE LA[facility]- [facility]ERENA DIALYSIS CATHETER INSTALLATION IV DRESSING CHANGED, PT TAKEN VIA HOSPITAL BED TO DAY SURGERY. PT AWARE OF THE PROCEDURE AND HAD NO FURTHER QUESTIONS. PT DENIED ANXIETY.
--- NOTE | 2018-02-23 15:53 | NUR ---
1515 Patient up to Ambulate independently FROM BED TO [facility]. UNSTABLE GAIT. STANDBY ASSIST Surgical site prepped with 2% Chlorhexidine cloth wipe. History, Chart, Medications and Allergies reviewed before start of procedure.Lungs clear T/O to Auscultation. Patient confirms NPO status and agrees with scheduled surgery. Pre-Op teaching done. Pt verbalizes understanding.
--- NOTE | 2018-02-23 17:43 | NUR ---
PT STATUS, POST SURGERY HANDOFF RECEIVED HANDOFF REPORT FROM DAY SURGERY NURSE RONNELL. PT RECEIVED NEW DIALYSIS CATHETER IN LEFT CHEST WALL, DRESSING IS C/D/I. DIALYSIS NURSE ZOFIA WILL PERFORM DIALYSIS TONIGHT. PT'S VITAL SIGNS ARE WNL AND THE PT IS AFEBRILE AT 97.3. PT IS NOT NAUSEOUS, PT DENIES PAIN.
--- NOTE | 2018-02-23 17:47 | NUR ---
SHIFT SUMMARY PT WAS MADE NPO THIS MORNING IN PREPARATION TO GO TO DAY SURGERY TO INSTALL A PERMACATH FOR DIALYSIS. THE PROCEDURE WAS PERFORMED WITHOUT INCIDENT. THE PT HAD A NEW PERMACATH INSERTED IN THE LEFT CHEST WALL. PT DENIES NAUSEA OR PAIN FOLLOWING THE PROCEDURE. DIALYSIS NURSE ALBERT WILL PERFORM DIALYSIS FOR THE PT THIS EVENING. PT IS A&O X4. POST-SURGICAL HANDOFF REPORT WAS RECEIVED FROM DAY SURGERY NURSE RONNELL. POST OP VS MONITORING PROTOCOL WILL BE OBSERVED WHEN PT IS RETURNED TO THE ROOM FROM RECOVERY. DIET WILL RESUME TOLERATED WHEN ORDERED. THE PT IS EXPECTED TO DC HOME TOMORROW.
--- NOTE | 2018-02-24 06:09 | NUR ---
*SHIFT SUMMARY* PATIENT ALERT AND ORIENTED. ALBERT ROPER CAME TO DIALYZE PATIENT AT THE BEGINING OF SHIFT. PATIENT STATED HE WAS ITCHY ALL OVER HIS BODY AND WOULD LIKE BENADRYL. CALLED HOSPITALIST, RECIEVED AND MEDICATED PATIENT SEE EMAR. PATIENT ALSO REQUESTED SLEEPING PILL. PATIENT SLEPT THROUGHOUT THE NIGHT. PATIENT USES CALL LIGHT APPROPRIATELY. BED ALARM ON FOR PATIENT THROUGHOUT THE NIGHT. PATIENT'S IV INFILTRATED AT THE BEGINING OF SHIFT, NEW IV STARTED. NO NEW ACUTE CHANGES TO PATIENT'S STATUS.
--- NOTE | 2018-02-24 09:20 | NUR ---
TRANSPORTED TO DIALYSIS VIA W/C ACCOMPANIED BY DAYRON GRIFFIN IN NO ACUTE DISTRESS
[2018-02-24 10:02] LABS: Hematocrit 32.8 % (37.0-53.0); Hemoglobin 10.4 g/dL (13.5-17.5)
[2018-02-24 10:16] LABS: Albumin, Blood 3.2 g/dL (3.4-5.0); Anion Gap 11 mmol/L (6-16); Blood Urea Nitrogen 62 mg/dL (8-24); Bun/Creatinine Ratio 10.7 (12.0-20.0); CO2, Blood 25 mmol/L (21-32); Calcium, Blood 7.8 mg/dL (8.5-10.1); Chloride, Blood 100 mmol/L (98-108); Creatinine, Blood 5.81 mg/dL (0.60-1.20); Glomerular Filtration Rate 10 (60-); Glucose, Blood 165 mg/dL (70-99); Phosphorus, Blood 6.6 mg/dL (2.5-4.9); Potassium, Blood 4.7 mmol/L (3.5-5.5); Sodium, Blood 136 mmol/L (136-145)
[2018-02-24] MEDS ORDERED: SEVE800 PO (15:03)
[2018-02-24] MEDS ORDERED: Tazicef1 G1 IV (15:04)
--- NOTE | 2018-02-24 15:34 | NUR ---
DISCHARGE NOTE PT DISCHARGED VIA W/C IN [place] AND IN NO ACUTE DISTRESS; IV DISCONTINUED INTACT. [facility] PT VERBALIZED UNDERSTANDING OF ALL FOLLOWUP AND DIALYSIS AND MEDICATION INSTRUCTIONS. TAXI VOUCHER PROVIDED FOR TRANSPORT TO [facility].
== END 2018-02-24 16:23 | disposition home or self-care (01) | DRG 314 ==
LOC: ER 15:07 → PCU 17:38 → MEDS 17:38 → PCU 18:12 → MEDS 02-18 11:20 → ENPENDDIS 02-24 10:00 → MEDS 02-24 16:23
PROVIDERS: Emergency Medicine; Internal Medicine; Internal Medicine Nephrology; Surgery; ADMIT Internal Medicine
PROC: 02HV33Z Insertion of Infusion Device into Superior Vena Cava, Percutaneous Approach (ICD-10-PCS; 2018-02-23)
PROC: B5181ZA Fluoroscopy of Superior Vena Cava using Low Osmolar Contrast, Guidance (ICD-10-PCS; 2018-02-23)
PROC: 5A1D70Z Performance of Urinary Filtration, Intermittent, Less than 6 Hours Per Day (ICD-10-PCS; 2018-02-23)
PROC: 0JH63XZ Insertion of Tunneled Vascular Access Device into Chest Subcutaneous Tissue and Fascia, Percutaneous Approach (ICD-10-PCS; principal; 2018-02-23 16:00)
DX: T82.7XXA Infection and inflammatory reaction due to other cardiac and vascular devices, implants and grafts, initial encounter (principal); N18.6 End stage renal disease; A41.59 Other Gram-negative sepsis; E87.2 Acidosis; I12.0 Hypertensive chronic kidney disease with stage 5 chronic kidney disease or end stage renal disease; N25.81 Secondary hyperparathyroidism of renal origin; Z86.718 Personal history of other venous thrombosis and embolism; I48.2 Chronic atrial fibrillation; Z87.442 Personal history of urinary calculi; F17.210 Nicotine dependence, cigarettes, uncomplicated; D63.1 Anemia in chronic kidney disease; Z99.2 Dependence on renal dialysis; E88.09 Other disorders of plasma-protein metabolism, not elsewhere classified; E86.9 Volume depletion, unspecified
CPT/HCPCS: 36415; 71046; 74176; 77001; 80053; 80069; 81001; 83605; 83735; 84100; 84484; 85014; 85018; 85025; 85610; 85730; 87040; 87070; 87077; 87086; 87186; 87205; 87486; 87581; 87633; 87798; 87804; 93005; 93010; 93308; 96361; 96365; 99285-25; C1750; J0713; J0881; J1100; J1644; J2370; J2405; J2543; J3010; J3370; J7030; J7050; Q0163

== ENCOUNTER 2018-08-08 10:01 | Day surgery (SDC) | payer MEDICARE ==
[~2018-08-08] VITALS: Ht 177.8 cm; Wt 73.8 kg
[~2018-08-08 10:01] MED LIST changes: +SERT25 PO; +SEVE800 PO; +SODPOL15SA PO; +TAMS.4ER PO; +Tazicef1 G1 IV
--- NOTE | 2018-08-08 11:41 | NUR ---
Ambulatory in Day Surgery UTILIZING WALKER. History, Chart, Medications and Allergies reviewed before start of procedure.LUNGS WITH SCATTERED RHONCHI. MOIST NON-PRODUCTIVE COUGH NOTED. SATS>90% ON RA. DUONEB GIVEN. NPO CONFIRMED.
--- NOTE | 2018-08-08 12:16 | NUR ---
PT STATES THAT HE IS TAKING A "BUS HOME." PT CURRENTLY LIVING AT [facility]. CALLED TO COMFIRM THAT THE BUS FROM THIS FACILITY WOULD BE AVAILABLE TO PT.
--- NOTE | 2018-08-08 12:33 | NUR ---
RESUMED CARE OF PATIENT FROM MOHINI BARLOW RN. REPORT RECEIVED. SPOKE WITH PATIENT ADVOCATE AND ARRANGED FOR ASSISTANCE WITH COST OF RIDE HOME TODAY VIA MEDICAL TRANSPORT TO [facility]. PATIENT INFORMED THAT WE WILL BE ABLE TO PROCEED WITH HIS PROCEDURE TODAY AND IS STATES THANK YOU. RIDE ARRANGED FOR APPROXIMATELY 3 PM.
--- NOTE | 2018-08-08 14:51 | NUR ---
Patient up to Ambulate independently. Gait steady. Pt ambulates w/FWW. Discharge instructions reviewed with patient. Patient verbalizes understanding. Copy given to patient to take home. Dressing to procedure site clean, dry, intact with no visible drainage, swelling, erythema or bruising noted. Patient States Post-Procedure ride home has been arranged through [facility]. Discharged via wheelchair to private car for ride home.
--- NOTE | 2018-08-09 10:09 | NUR ---
08/09/18 1009 Cande Redding VERIFICATIONS: EDIT CHART.
== END 2018-08-08 22:45 | disposition home or self-care (01) ==
LOC: ORSCMMR 10:01
PROVIDERS: Surgery
PROC: 05PY33Z Removal of Infusion Device from Upper Vein, Percutaneous Approach (ICD-10-PCS; principal; 2018-08-08 11:45)
PROC: 05HM33Z Insertion of Infusion Device into Right Internal Jugular Vein, Percutaneous Approach (ICD-10-PCS; principal; 2018-08-08 11:45)
PROC: B5131ZA Fluoroscopy of Right Jugular Veins using Low Osmolar Contrast, Guidance (ICD-10-PCS; principal; 2018-08-08 11:45)
DX: T82.42XA Displacement of vascular dialysis catheter, initial encounter (principal); I12.0 Hypertensive chronic kidney disease with stage 5 chronic kidney disease or end stage renal disease; N18.5 Chronic kidney disease, stage 5; I48.91 Unspecified atrial fibrillation; Z86.718 Personal history of other venous thrombosis and embolism; Z79.899 Other long term (current) drug therapy; J44.9 Chronic obstructive pulmonary disease, unspecified; Z87.891 Personal history of nicotine dependence
CPT/HCPCS: 77001; C1750; J0690; J1644; J2405; J2704; J3010; J7030

== ENCOUNTER 2018-11-29 17:04 | Emergency (ER) | payer MEDICARE ==
[~2018-11-29] VITALS: Ht 177.8 cm; Wt 73.5 kg
[2018-11-29 17:58] LABS: BASOPHILS ABSOLUTE AUTO 0.05 K/mm3 (0.00-0.23); BASOPHILS PERCENT AUTO 1 % (0-2); EOSINOPHILS ABSOLUTE AUTO 0.25 K/mm3 (0.00-0.68); EOSINOPHILS PERCENT AUTO 3 % (0-6); Hematocrit 35.3 % (37.0-53.0); Hemoglobin 11.5 g/dL (13.5-17.5); IMMATURE GRAN ABSOLUTE AUTO 0.14 K/mm3 (0.00-0.10); IMMATURE GRAN PERCENT AUTO 2 % (0-1); LYMPHOCYTES ABSOLUTE AUTO 1.21 K/mm3 (0.84-5.20); LYMPHOCYTES PERCENT AUTO 13 % (21-46); MONOCYTES ABSOLUTE AUTO 0.78 K/mm3 (0.16-1.47); MONOCYTES PERCENT AUTO 9 % (4-13); Mean Corpuscular HGB 33.6 pg (26.0-34.0); Mean Corpuscular HGB Conc 32.6 g/dL (31.5-36.5); Mean Corpuscular Volume 103 fL (80-100); Mean Platelet Volume 10.1 fL (9.1-12.4); NEUTROPHILS ABSOLUTE AUTO 6.65 K/mm3 (1.96-9.15); NEUTROPHILS PERCENT AUTO 73 % (41-73); Platelet Count 211 K/mm3 (150-400); RDW Coefficient Variation 14.1 % (11.7-14.2); RDW Standard Deviation 53.2 fL (35.1-46.3); Red Blood Cell Count 3.42 M/mm3 (4.30-5.90); White Blood Cell Count 9.08 K/mm3 (4.00-11.30)
[2018-11-29 18:14] LABS: Bilirubin, Total 0.4 mg/dL (0.1-1.0); Bun/Creatinine Ratio 9.2 (12.0-20.0); Calcium, Blood 9.2 mg/dL (8.5-10.1); Creatinine, Blood 3.36 mg/dL (0.60-1.20); Potassium, Blood 3.5 mmol/L (3.5-5.5)
[2018-11-29] MEDS ORDERED: Calcium Acetat667 MG PO (18:25)
== END 2018-11-29 20:03 | disposition home or self-care (01) ==
LOC: ER 17:04
PROVIDERS: Emergency Medicine
DX: I12.0 Hypertensive chronic kidney disease with stage 5 chronic kidney disease or end stage renal disease (principal); N18.6 End stage renal disease; Z99.2 Dependence on renal dialysis; I48.91 Unspecified atrial fibrillation; E87.8 Other disorders of electrolyte and fluid balance, not elsewhere classified; Z91.018 Allergy to other foods; Z79.899 Other long term (current) drug therapy; F17.210 Nicotine dependence, cigarettes, uncomplicated
CPT/HCPCS: 80053; 84484; 85025; 93005; 93010; 96360; 99284-25; J7030

== ENCOUNTER 2019-03-18 12:18 | Inpatient (IN) | payer OTHER, MEDICARE ==
[~2019-03-18] VITALS: Ht 175.3 cm; Wt 80.3 kg
[2019-03-18 12:56] LABS: Source, Urine Clean Catch
[2019-03-18 13:03] LABS: Bilirubin, Urine Neg (Neg); Blood, Urine 5+ (Neg); Glucose Qualitative, Urine 3+ (Neg); Ketones, Urine 1+ (Neg); Leukocyte Esterase, Urine 2+ (Neg); Nitrite, Urine Neg (Neg); Protein, Urine 3+ (Neg); Urobilinogen, Urine NORM (Normal)
[2019-03-18 13:14] LABS: Albumin, Blood 2.9 g/dL (3.4-5.0); Albumin/Globulin Ratio 0.7 (0.8-1.8); Bilirubin, Total 0.7 mg/dL (0.1-1.0); Bun/Creatinine Ratio 7.2 (12.0-20.0); Calcium, Blood 8.8 mg/dL (8.5-10.1); Creatinine, Blood 7.34 mg/dL (0.60-1.20); Globulin, Blood 4.2 g/dL (2.2-4.0); Potassium, Blood 4.2 mmol/L (3.5-5.5); Total Protein, Blood 7.1 g/dL (6.4-8.2)
[2019-03-18 13:15] LABS: Appearance, Urine Cloudy (Clear); Color, Urine Yellow (P-Yellow)
[2019-03-18 13:16] LABS: Red Blood Cells, Urine 50-100 /hpf (0-2)
[2019-03-18 13:17] LABS: Bacteria Mod /hpf; Squamous Epithelial Cells Rare /hpf (Few)
[2019-03-18 13:22] LABS: Hematocrit 29.7 % (37.0-53.0); Hemoglobin 9.5 g/dL (13.5-17.5); Mean Corpuscular HGB 32.9 pg (26.0-34.0); Mean Corpuscular Volume 103 fL (80-100); Mean Platelet Volume 11.4 fL (9.1-12.4); Platelet Count 88 K/mm3 (150-400); RDW Coefficient Variation 13.4 % (11.7-14.2); RDW Standard Deviation 50.7 fL (35.1-46.3); Red Blood Cell Count 2.89 M/mm3 (4.30-5.90); White Blood Cell Count 18.01 K/mm3 (4.00-11.30)
[2019-03-18 13:27] LABS: U Amphetamine Screen Not Detected; U Barbituate Screen Not Detected; U Benzodiazapine Screen Not Detected; U Buprenorphine Screen Not Detected; U Cannabinoids Screen Not Detected; U Cocaine Screen Not Detected; U Methadone Screen Not Detected; U Methamphetamine Screen Not Detected; U Opiates Screen DETECTED; U Oxycodone Screen Not Detected; U Phencyclidine Screen Not Detected; U Propoxyphene Screen Not Detected
[2019-03-18 13:29] LABS: Ethanol (Alcohol), Blood, Med <3 mg/dL
[2019-03-18 13:40] LABS: IMMATURE GRAN ABSOLUTE AUTO 0.25 K/mm3 (0.00-0.10); IMMATURE GRAN PERCENT AUTO 1 % (0-1)
[2019-03-18 13:43] LABS: BAND PERCENT MAN 15 % (0-8); BASOPHILS PERCENT MAN 0 % (0-2); EOSINOPHILS PERCENT MAN 0 % (0-6); LYMPHOCYTES ABSOLUTE MAN 0.72 K/mm3 (0.84-5.20); LYMPHOCYTES PERCENT MAN 4 % (21-46); METAMYELOCYTE ABSOLUTE MAN 0.36 K/mm3 (0.00-0.00); METAMYELOCYTE PERCENT MAN 2 % (0-0); MONOCYTES ABSOLUTE MAN 0.36 K/mm3 (0.16-1.47); MONOCYTES PERCENT MAN 2 % (4-13); NEUTROPHILS ABSOLUTE MAN 16.56 K/mm3 (1.96-9.15); SEG NEUTROPHILS PERCENT MAN 77 % (41-73); TOTAL CELLS COUNTED 100
[2019-03-18 13:55] LABS: Phosphorus, Blood 4.2 mg/dL (2.5-4.9)
[2019-03-18 14:24] LABS: Influenza A Negative (NEGATIVE); Influenza B Negative (NEGATIVE)
--- NOTE | 2019-03-18 15:07 | NUR ---
DIALYSIS DR ARRIAGA CALLED AND ASKED ME TO DRAW 2 SETS OF BLOOD CULTURES FROM THE PT'S HD CATHETER. PT IN THE ED. HAD THE PT SIGN A RELEASE FORM. THEN JHONNY 2 SETS OF BC PER PROTOCAL. SENT TO THE LAB FROM THE ED. PT SEEMED A&O.
--- NOTE | 2019-03-18 18:16 | NUR ---
SPOKE WITH DR. ARRIAGA PER DR. ARRIAGA CT WITH CONTRAST IS OKAY, DIALYSIS WILL BE DONE IN THE NEXT 24HRS. IF ANY QUESTIONS THEY CAN CALL HER CELL PHONE.
--- NOTE | 2019-03-18 19:04 | NUR ---
ASSUMED CARE/SHIFT SUMMARY PT ARRIVED TO ICU AT 1612. HE WAS IN AFIB, STABLE VITALS (AFIB 120'S), DENIED CP/SOB/NAUSEA. HE WAS CHILLY. HIS FINGERS AND TOES WERE DUSKY. HE WAS RECEIVING THE SECOND HALF OF A LIUTER FLUID BOLUS (EITHER HIS 2ND OR 3RD LITER), AND HIS VANCOMYCIN WAS INFUSED. HE WAS STARTED ON HEPARIN, AND RECIEVED THE BOLUS. HE STARTED COMPLAINING OF INTENSE SHARP GROIN PAIN, THAT WOULD COME IN WAVES ALMOST LIKE SPASMS. HIS KNEES DOWN WERE DUSKY, HE HAD FAINT PULSES IN HIS FEET. HIS SBP WAS IN THE 80'S AFTER THE FLUID BOLUS. I CALLED LORAINE AND WE GOT CARDIOLOGY (DR SANCHEZ) CONSULTED (TROPONIN WAS 11) AND THE FILLETER (DR GRAHAM) BECAUSE LACTIC ACID WAS 3.2 AND THE OBVIOUS SIGNS OF HYPOPERFUSION AND HYPOTENSION. BART WAS ALREADY CONSULTED AND HAD SAW THE PATIENT PRIOR TO THE DETERIORATION, DR SANCHEZ WAS ABLE TO TALK WITH HER. A CT OF THE ABODMEN AND CHEST WAS ORDERED DUE TO THE INTENSE PAIN, WITH CONTRAST. DUE TO HIS END STAGE RENAL DISEASE, BART WANTS HIM TO HAVE DIALYSIS WITHIN 24 HOURS. PRIOR TO THESE EVENTS, HE TOLD ME HE WISHES TO BE A DNR. THE CHANGE HAS BEEN MADE, PER DR MEAD. PT APPEARS TO BE MORE LETHARGIC CURRENTLY, BUT REMAINS ORIENTED. PAIN SEEMS TO HAVE SUBSIDED SOME BECAUSE HES NOT CRYING OUT ANYMORE. DR GRAHAM HAS ORDERED LEVOPHED LOW DOSE AND TO BE INFUSED THROUGH THE PERMACATH WHILE HE PUTS IN A CENTRAL LINE. GOAL IS TO MAINTAIN MAP > 65. HESHAM DOESN'T ANTIPCIATE AN INTERVENTION AT THIS TIME, THE PATIENT IS NOT AND HAS NOT EXPERIENCED CHEST PAIN, SHE WILL TREND TROPONINS AND HAVE AN ECHO DONE IN THE MORNING. PT REMAINS IN AFIB, BUT RATE IS 110-120'S; TOUCHING THE 130'S OCCASIONALY. IT WAS 140'S IN THE ER. DR. GRAHAM IS CURRENTLY INSERTING A CVC. PT RECEIEVED ZOSYN AND VANC IN ER, NEXT DOSE OF AN ANTIBIOTIC IS DUE AT 2100 (ZOSYN). BLOOD CULTURES WERE DRAWN PRIOR IN THE ER, ONE FROM VENIPUNCTURE AND ONE FROM PERMACATH. LAST YEAR IN FEBRUARY HE WAS HOSPITALIZED FOR SEPSIS, WITH A SOURCE FROM HIS PERMACATH, THAT HE HAD OPTED OUT OF CHANGING. REPORT HAS BEEN GIVEN TO JACQUELIN SHANNON.
--- NOTE | 2019-03-18 19:22 | NUR ---
DR. MCCOY, AT BEDSIDE PLACING CENTRAL LINE. R GROIN SITE. PT TOLERATING WELL.
--- NOTE | 2019-03-18 20:59 | NUR ---
START OF SHIFT: REPORT FROM LITO ROPER. MARKET GARDENER AND DR. MCCOY AT BEDSIDE FOR CL INSERTION. PT AWAKE, A+O AND VERBALIZED UNDERSTANDING OF PROCEDURE AND REASON WHY IN HOSPITAL. PT ORIENTED TO PERSON, TOWN, MONTH AND YEAR. PT WITH LEVOPHED INFUSING INTO DIALYSIS (RED) PORT AT 2mcg\\min, AND HEPARIN INFUSING INTO RIGHT PERIPH AT 13u/kg. PT IN A-FIB C/ HR 116-153. VERBAL ORDER FROM DR. MCCOY TO KEEP PT'S MAP AT 70. PT ON 02 2L N/C, LS CLEAR. PT DESATS SLIGHTLY WHEN FALLS ASLEEP. PT PUPILS 2mm KEENAN, PT FOLLOWS DIRECTIONS. BRIDGE CONSTRUCTION INSPECTOR STRONG AND EQUAL. A CENTRAL LINE WAS PLACED AT APPRX 1925 TO RIGHT GROIN C/ VERBAL OKAY TO USE PER DR. MCCOY. PT DOES C/O OF NECK PAIN WITH ANY MOVEMENT. MADE AWARE CONSIDERING PT ADMIT S/S C/ FEVER. DR. MCCOY RETURNED TO BEDSIDE AND EVALUATED PT RE: NECK PAIN C/ NO NEW ORDERS GIVEN PERTAINING. PT GAVE VERBAL CONSENT FOR HIS "ONLY FRIEND" ELLEN HURT TO RECEIVE INFORMATION AND LATER TALKED TO THIS PERSON ON THE PHONE. PT MEDICATED FOR PAIN. REPOSITIONED FOR COMFORT. GIVEN CALL LIGHT.
--- NOTE | 2019-03-18 21:48 | NUR ---
PT GIVEN SOUP AND APPLE JUICE PER REQUEST. PT ABLE TO FEED SELF WITHOUT DIFFICULTIES. PT WATCHING TV AND CONVERSING WELL BUT OCCASIONALLY STALLS ON FINDING HIS WORDS.
--- NOTE | 2019-03-18 22:09 | NUR ---
DIALYSIS PORT SITE CLEANSED WITH CHLORHEX, DRESSED C/ GAUZE, SECURED C/ MEDIPORE TAPE.
--- NOTE | 2019-03-19 03:16 | NUR ---
BLADDER SCAN: PT UNABLE TO VOID AFTER SEVERAL ATTEMPTS. BLADDER SCAN SHOWING 339cc URINE IN BLADDER. PT REFUSED STRAIGHT CATH AND IS CONTINUING TO TRY TO VOID. WILL CONTINUE TO MONITOR.
[2019-03-19 04:24] LABS: Hematocrit 26.8 % (37.0-53.0); Hemoglobin 8.6 g/dL (13.5-17.5); Mean Corpuscular HGB Conc 32.1 g/dL (31.5-36.5); Mean Corpuscular Volume 103 fL (80-100); Mean Platelet Volume 11.3 fL (9.1-12.4); Platelet Count 83 K/mm3 (150-400); RDW Coefficient Variation 13.7 % (11.7-14.2); RDW Standard Deviation 51.6 fL (35.1-46.3); Red Blood Cell Count 2.61 M/mm3 (4.30-5.90); White Blood Cell Count 16.79 K/mm3 (4.00-11.30)
[2019-03-19 04:46] LABS: Alanine Aminotransfer (ALT/SGP 46 U/L (12-78); Albumin, Blood 2.4 g/dL (3.4-5.0); Albumin/Globulin Ratio 0.6 (0.8-1.8); Alk Phos 47 U/L (50-136); Anion Gap 8 mmol/L (6-16); Aspartate Aminotrans (AST/SGOT 79 U/L (12-37); Bilirubin, Total 0.7 mg/dL (0.1-1.0); Blood Urea Nitrogen 66 mg/dL (8-24); Bun/Creatinine Ratio 8.9 (12.0-20.0); CHOL/HDL RATIO 2.3; CO2, Blood 25 mmol/L (21-32); Calcium, Blood 7.6 mg/dL (8.5-10.1); Chloride, Blood 100 mmol/L (98-108); Cholesterol 105 mg/dL (50-200); Creatinine, Blood 7.43 mg/dL (0.60-1.20); Globulin, Blood 3.8 g/dL (2.2-4.0); Glomerular Filtration Rate 8 (60-); Glucose, Blood 108 mg/dL (70-99); HDL Cholesterol 45 mg/dL (>39); LDL/HDL RATIO 0.9; Low Density Lipoprotein Chol 42 mg/dL (0-110); Magnesium, Blood 2.1 mg/dL (1.6-2.4); Phosphorus, Blood 6.6 mg/dL (2.5-4.9); Potassium, Blood 4.1 mmol/L (3.5-5.5); Sodium, Blood 133 mmol/L (136-145); Total Protein, Blood 6.2 g/dL (6.4-8.2); Triglycerides 89 mg/dL (30-160); Very Low Density Lipoprot Chol 17 mg/dL (6-32)
[2019-03-19 05:25] LABS: BAND PERCENT MAN 10 % (0-8); BASOPHILS ABSOLUTE MAN 0.16 K/mm3 (0.00-0.23); BASOPHILS PERCENT MAN 1 % (0-2); EOSINOPHILS PERCENT MAN 0 % (0-6); LYMPHOCYTES ABSOLUTE MAN 0.16 K/mm3 (0.84-5.20); LYMPHOCYTES PERCENT MAN 1 % (21-46); METAMYELOCYTE ABSOLUTE MAN 0.16 K/mm3 (0.00-0.00); METAMYELOCYTE PERCENT MAN 1 % (0-0); MONOCYTES ABSOLUTE MAN 0.33 K/mm3 (0.16-1.47); MONOCYTES PERCENT MAN 2 % (4-13); NEUTROPHILS ABSOLUTE MAN 15.95 K/mm3 (1.96-9.15); SEG NEUTROPHILS PERCENT MAN 85 % (41-73); TOTAL CELLS COUNTED 100
--- NOTE | 2019-03-19 05:53 | NUR ---
SHIFT SUMMARY: PT, NEURO, IMPROVED T/O NOC BECOMING MORE CONVERSIVE AND ORIENTED WITH ONLY CONUFUSION IS AFTER JUST AWAKENING. PT REMAINS ON LEVOPHED 3mcg/min, AND HEPARIN GTT NOW AT 12 u/kg. PT NOW AFEBRILE. PT EVENTUALLY VOIDED BUT ONLY 125cc AND CONTINUED TO REFUSE STRAIGHT CATHETERIZATION. PT REQUESTED AND WAS GIVEN APPLE JUICE AND SOUP T/O NOC AND TOLERATED WELL. PT ONLY PAIN WERE HIS NECK OCCASIONALLY AND GROIN PAIN WHICH WAS RELIEVED WITH THE ONE DOSE OF MORPHINE. PT CURRENTLY SLEEPING. VSS. WILL CONTINUE TO MONITOR AND REPORT OFF TO ONCOMING RN.
--- NOTE | 2019-03-19 07:56 | NUR ---
ASSUMED CARE / DR SANCHEZ: REPORT RECEIVED FROM SHIVA Gresham RN. ASSUMED CARE OF THIS PT AT APPROX 0700. ON ASSESSMENT, THE PT IS AWAKE, A&O. HE IS PLEASANT & COOPERATIVE, EXPRESSING NEEDS APPROPRIATELY. HE DENIES PAIN AT THIS TIME BUT STS PAIN TO GROIN RETURNS W/ MOVEMENT. LS ARE CLEAR T/O, PT ON 2L NC W/ O2 SATS > 92%. MONITOR SHOWS AFIB W/ HR 110-130s, INCREASED W/ EXERTION. BP STABLE W/ LEVOPHED TITRATION IN FLOWSHEET, GOAL TO MAINTAIN MAP > 70. PT TOLERATING PO INTAKE WELL W/ NO NAUSEA. VOIDS IN SMALL AMNTS R/T DIALYSIS, PLANS FOR DIALYSIS AT 1200 TODAY. PERMACATH TO R CHEST WALL W/ NEW DRESSING IN PLACE, CDI. WOUND PURULENT PER REPORT. CENTRAL LINE TO R GROIN WNL, DRESSING CDI. PROVIDER AT BEDSIDE TO MEGAAL PT. NO CURRENT CHANGES, CONTINUE HEPARIN DRIP & PRESSORS NEEDED TO MAINTAIN BP. WILL CONTINUE TO MONITOR & UPDATE NEEDED.
--- NOTE | 2019-03-19 09:00 | NUR ---
DR ARRIAGA: PROVIDER AT BEDSIDE TO EVAL PT. DIALYSIS TIME HAS BEEN MOVED UP & NYEMAR Murphy RN AT BEDSIDE NOW. AIM TO DIALYZE 1-1.5L OFF PT PER DR ARRIAGA.
--- NOTE | 2019-03-19 10:21 | NUR ---
EXPORT SALES MANAGER AT BEDSIDE
--- NOTE | 2019-03-19 10:49 | NUR ---
AM MEDICATION DELAY: NEYMAR Murphy, SPORTS ATTORNEY, AT BEDSIDE. DISCUSSED W/ HIM ORDERED ABX & IV DIGOXIN, HE FEELS THAT THESE MEDS MAY DIALYZE OUT & WOULD BE BEST GIVEN AFTER DIALYSIS COMPLETE AT APPROX 1200.
--- NOTE | 2019-03-19 11:12 | NUR ---
Echocardiogram completed.
[2019-03-19 12:22] LABS: Vancomycin, Random 7.1 ug/mL
--- NOTE | 2019-03-19 12:37 | NUR ---
UPDATE: 1.5L REMOVED DURING DIALYSIS. PT NOW HAS C/O INCREASED PAIN TO GROIN, INCREASED HR TO 150-160s & PERSISTANT HYPOTENSION; LEVOPHED TITRATED UP TO MAINTAIN MAP > 70. SPOKE W/ DR BRAVO FOR CONCERNS OF PT BEING HYPOVOLEMIC S/P DIALYSIS. PROVIDER STS OKAY FOR 500ML NS BOLUS, ORDERS PLACED.
--- NOTE | 2019-03-19 13:43 | NUR ---
DR BARON: PROVIDER AT BEDSIDE TO EVAL PT. PT HAS C/O R HIP PAIN & IMAGING ORDERS PLACED. PROVIDER WOULD LIKE THIS RN TO CONTACT DR ARRIAGA PRIOR TO CALLING SURGICAL CONSULT TO CONFIRM WHAT SHE WOULD LIKE DONE IN REGARDS TO DIALYSIS ACCESS.
--- NOTE | 2019-03-19 16:00 | NUR ---
DR ARRIAGA: PROVIDER AT BEDSIDE TO EVAL PT. SHE STS SHE WOULD LIKE GENERAL SURGERY CONSULT TO BE PLACED FOR POSSIBLE NEW PERMACATH PLACEMENT. SHE WOULD LIKE THE PT TO BE EVALUATED TO DETERMINE IF THE SURGEON WILL BE ABLE TO PLACE ANOTHER PERMACATH IN THIS PT, IF SO, SHE WOULD LIKE THE CURRENT PERMACATH TO BE REMOVED BY THE SURGEON TODAY IF POSSIBLE. CALL TO DR FRIEND's ANSWERING SERVICE HAS BEEN PLACED.
--- NOTE | 2019-03-19 17:45 | NUR ---
DR FRIEND: PROVIDER AT BEDSIDE TO EVAL PT. UPDATED HIM ON PLANS FOR PERMACATH REMOVAL KELLIE IF HE DETERMINES ANOTHER PERMACATH PLACEMENT OPTION FOR LATER IN THE WEEK. HE IS AGREEABLE TO THIS & PLANS TO CALL DR ARRIAGA TO DISCUSS THE CASE & PERMACATH OPTIONS WITH HER. THIS RN HAS PROVIDED DR ARRIAGA's CELL NUMBER & PROVIDERS WILL NOTIFY US OF CHANGES/ ORDERS.
--- NOTE | 2019-03-19 18:37 | NUR ---
SHIFT SUMMARY: NO ACUTE CHANGES SINCE PRIOR UPDATES. PT A&O, PLEASANT & COOPERATIVE. HE HAS RESTED WELL INTERMITTENTLY THIS SHIFT W/ NO FURTHER C/O PAIN TO GROIN UNLESS W/ MOVEMENT OF LEGS. LS ARE CLEAR, PT ON 2L NC W/ O2 SATS > 92%. MONITOR SHOWS AFIB W/ RVR, HR 100-140s. BP STABLE W/ LEVOPHED DRIP TITRATION IN FLOWSHEET. PT HAS NO GI COMPLAINTS & IS TOLERATING PO INTAKE WELL. VOIDS SMALL AMNTS & HAS SOME DIFFICULTY INITIATING. SKIN OVERLL CDI, CENTRAL LINE TO R GROIN WNL & DRESSING IS CDI. HEPARIN DRIP PER PHARMACY MANAGEMENT. WILL CONTINUE TO MONITOR & REPORT OFF TO ONCOMING RN.
--- NOTE | 2019-03-19 20:20 | NUR ---
ASSUMPTION OF CARE ASSUMED CARE OF PT @ 1900, PT RESTING IN BED, AROUSES TO VERBAL STIMULI, ORIENTED TO SELF, PLACE, SITUATION AND FOLLOWING DIRECTIONS. LS CLEAR, FINE CRACKLES TO THE LLL, RESPIRATIONS EVEN/UNLABORED, RATE 12, O2 SATURATIONS>90% ON 2L PER NC, DENIES SOB. MONITOR SHOWS AFIB WITH RVR, FEW PVC'S, HR 130-150'S INCREASING TO 160'S WITH EXERTION, MAP>70 WITH LEVO @ 5mcg/min, HEPARIN INF @ 12.5u/kg/hr (19.5ml/hr). SKIN IS WARM, PT MOELLER, WEAKNESS NOTED, PT DENIES ANY PAIN/DISCOMFORT AT THIS TIME. CALL LIGHT WITHIN REACH.
[2019-03-20 04:35] LABS: BASOPHILS ABSOLUTE AUTO 0.03 K/mm3 (0.00-0.23); BASOPHILS PERCENT AUTO 0 % (0-2); EOSINOPHILS PERCENT AUTO 3 % (0-6); Hematocrit 26.2 % (37.0-53.0); Hemoglobin 8.3 g/dL (13.5-17.5); IMMATURE GRAN ABSOLUTE AUTO 0.33 K/mm3 (0.00-0.10); IMMATURE GRAN PERCENT AUTO 3 % (0-1); LYMPHOCYTES ABSOLUTE AUTO 0.65 K/mm3 (0.84-5.20); LYMPHOCYTES PERCENT AUTO 5 % (21-46); MONOCYTES ABSOLUTE AUTO 0.49 K/mm3 (0.16-1.47); MONOCYTES PERCENT AUTO 4 % (4-13); Mean Corpuscular HGB 32.5 pg (26.0-34.0); Mean Corpuscular HGB Conc 31.7 g/dL (31.5-36.5); Mean Corpuscular Volume 103 fL (80-100); Mean Platelet Volume 11.8 fL (9.1-12.4); NEUTROPHILS ABSOLUTE AUTO 10.92 K/mm3 (1.96-9.15); NEUTROPHILS PERCENT AUTO 85 % (41-73); Platelet Count 76 K/mm3 (150-400); RDW Coefficient Variation 13.3 % (11.7-14.2); RDW Standard Deviation 50.6 fL (35.1-46.3); Red Blood Cell Count 2.55 M/mm3 (4.30-5.90); White Blood Cell Count 12.82 K/mm3 (4.00-11.30)
[2019-03-20 04:57] LABS: Alanine Aminotransfer (ALT/SGP 61 U/L (12-78); Anion Gap 9 mmol/L (6-16); Aspartate Aminotrans (AST/SGOT 61 U/L (12-37); Blood Urea Nitrogen 45 mg/dL (8-24); Bun/Creatinine Ratio 8.5 (12.0-20.0); CO2, Blood 27 mmol/L (21-32); Calcium, Blood 7.7 mg/dL (8.5-10.1); Chloride, Blood 101 mmol/L (98-108); Creatinine, Blood 5.31 mg/dL (0.60-1.20); Glomerular Filtration Rate 11 (60-); Glucose, Blood 98 mg/dL (70-99); Phosphorus, Blood 4.7 mg/dL (2.5-4.9); Potassium, Blood 3.7 mmol/L (3.5-5.5); Sodium, Blood 137 mmol/L (136-145); Vancomycin, Random 33.5 ug/mL
[2019-03-20 05:07] LABS: Digoxin (Lanoxin) 0.37 ug/mL (0.80-2.00)
--- NOTE | 2019-03-20 07:20 | NUR ---
ASSUMED CARE OF PT AT 0700. REPORT FROM BLOSSOM ROPER. PT RESTING IN BED. A&OX 4. ANSWERING QUESTIONS APPROPRIATELY. FOLLOWS COMMANDS. PT C/O RIGHT GROIN PAIN. DENIES OTHER COMPLAINTS. LUNGS DIMINISHED IN BASES, PT P/W/D. LEVOPHED INFUSING AT 4 MCG/MIN VIA RIGHT GROIN CL. GOAL TO MAINTAIN MAP >70. HR 110-140'S. DR PACK AT BEDSIDE. WILL MEDICATED c DIGOXIN 0.25 MCG IV THIS AM FOR RATE CONTROL. AFIB. HEPARIN INFUSING AT 13.5 UNITS/KG/HR. PERMACATH TO RIGHT CHEST WALL. DRESSING C/D/I. NO DRAINAGE AT THIS TIME. PLAN FOR DIALYSIS THIS AM, THEN DAY SURGERY FOR PERMACATH REMOVAL AND MAHURKAR PLACEMENT. WILL CONTINUE TO MONITOR.
--- NOTE | 2019-03-20 07:38 | NUR ---
SHIFT SUMMARY NO ACUTE CHANGES T/O SHIFT. PT REMAINS A&O x4, LS CLEAR WITH CRACKLE TO LLL, OXYGEN INCREASED TO 5L PER NC THIS SHIFT TO MAINTAIN SATURAIONS> 90% WHILE SLEEPING. PT DENIES SOB, SOME PAIN TO GROIN AREA, PRN MEDICATIONS ADEQUATE FOR PAIN MANAGEMENT. PT REMAINS IN AFIB W/ RVR T/O SHIFT, RATE 130'S-160'S, LEVO @ 4mcg/min TO MAINTAIN MAPS>70. PT CONTINENT OF URINE, OLIGURIC, SOME INCONTINENCE OF STOOL NOTED, 2 LIQUID BROWN STOOLS THIS SHIFT. HEPARIN BOLUS ADMINISTERED THIS SHIFT PER PHARMACY, GTT INCREASED TO 13.5u/kg/hr (SEE FLOWSHEET) DR SANCHEZ IN TO SEE PT THIS AM. REPORT GIVEN TO FLORENCE ROPER.
[2019-03-20 11:31] LABS: Vancomycin, Random 22.4 ug/mL
--- NOTE | 2019-03-20 14:48 | NUR ---
03/20/19 1448 Talia Beltran PT ON SCHEDULED ANTIBIOTICS
--- NOTE | 2019-03-20 17:15 | NUR ---
SHIFT SUMMARY PT PHYSICAL EXAM UNCHANGED FROM START OF SHIFT. DIALYSIS COMPLETE THIS AM. HEPARIN PLACED ON STANDBY AT 1036 FOR REMOVAL OF DIALYSIS CATH AND PLACEMENT OF MAHURKAR. PT RETURNED FROM OR AT 1540, DIALYSIS PORT TO LEFT CHEST WALL REMOVED, DRESSING IN PLACE, C/D/I. NO BLEEDING NOTED, SOFT, NON TENDER. UNSUCCESSFUL PLACEMENT OF MAHURKAR TO LEFT CHEST WALL. DRESSING C/D/I. PLAN PER DR FRIEND FOR DR GORE TO PLACE CATH IN NEXT TWO DAYS. DR GORE CONTACTED BY DR FRIEND. LEVOPHED CONTINUES AT 2 MCG/MIN, GOAL MAP>70. HEPARIN RESTARTED AT 13.5 UNITS/KG/HR AT 1640, PHARMACY NOTIFIED. REPORT TO ONCOMING NURSE.
--- NOTE | 2019-03-20 19:00 | NUR ---
ASSUME CARE: BEDSIDE REPORT RECIEVED FROM FLORENCE ROPER. MONITOR INTACT SHOWING A FIB HEART RATE 100'S-120'S. LUNG SOUNDS CLEAR UPPER LOBES WITH DECREASED SOUNDS IN THE BASES. RESPIRATIONS REGULAR AND EASY WITH O2 IN PLACE AT 2L/MIN.SPO2 91-95%. DRESSING INTACT TO DHEST WALL. ABDOMEN SOFT WITH BOWEL SOUNDS FOUR QUADS. GROIN SITE CLEAR ASSISTS WITH REPOSITIONING. VOIDS SMALL AMOUNTS OF CLEAR LORAINE URINE. CONTINUE TO MONITOR AND REPORT CHANGE IN PATIENT CONDITION.
--- NOTE | 2019-03-21 05:51 | NUR ---
SHIFT SUMMARY: RESTS QUIETLY WHEN UNDISTURBED. MONITOR INTACT SHOWING A FIB. HEART RATE 90'S-130'S. LUNG SOUNDS CLEAR UPPER LOBES DECREASED SOUNDS IN THE BASES RESPIRATIONS REGULAR AND EASY ON 3L O2 PER NASAL CANNULA. SPO2 90-94%. DRESSINGS TO CHEST WALL DRY INTACT. ABDOMENS SOFT WITH BOWEL SOUNDS FOUR QUADS. VOIDS SMALL AMOUNTS OF CLEAR YELLOW URINE. R GROIN FEMORAL LINE SITE CLEAR INFUSING WELL. ASSISTS WITH REPOSITIONING.HAS HAD TWO SMALL BOWEL MOVEMENTS THIS SHIFT ALERT COOPERATIVE TO CARES. CONTINUE TO MONITOR AND REPORT CHANGE IIN PATIENT CONDITION.
[2019-03-21 06:17] LABS: BASOPHILS ABSOLUTE AUTO 0.02 K/mm3 (0.00-0.23); BASOPHILS PERCENT AUTO 0 % (0-2); EOSINOPHILS PERCENT AUTO 3 % (0-6); Hematocrit 25.3 % (37.0-53.0); Hemoglobin 7.9 g/dL (13.5-17.5); IMMATURE GRAN ABSOLUTE AUTO 0.12 K/mm3 (0.00-0.10); IMMATURE GRAN PERCENT AUTO 2 % (0-1); LYMPHOCYTES PERCENT AUTO 10 % (21-46); MONOCYTES ABSOLUTE AUTO 0.59 K/mm3 (0.16-1.47); MONOCYTES PERCENT AUTO 8 % (4-13); Mean Corpuscular HGB 32.2 pg (26.0-34.0); Mean Corpuscular HGB Conc 31.2 g/dL (31.5-36.5); Mean Corpuscular Volume 103 fL (80-100); Mean Platelet Volume 12.9 fL (9.1-12.4); NEUTROPHILS ABSOLUTE AUTO 5.51 K/mm3 (1.96-9.15); NEUTROPHILS PERCENT AUTO 77 % (41-73); Platelet Count 60 K/mm3 (150-400); RDW Coefficient Variation 13.3 % (11.7-14.2); RDW Standard Deviation 50.7 fL (35.1-46.3); Red Blood Cell Count 2.45 M/mm3 (4.30-5.90); White Blood Cell Count 7.14 K/mm3 (4.00-11.30)
[2019-03-21 06:29] LABS: Anion Gap 8 mmol/L (6-16); Blood Urea Nitrogen 34 mg/dL (8-24); Bun/Creatinine Ratio 8.1 (12.0-20.0); CO2, Blood 27 mmol/L (21-32); Calcium, Blood 7.9 mg/dL (8.5-10.1); Chloride, Blood 103 mmol/L (98-108); Creatinine, Blood 4.19 mg/dL (0.60-1.20); Glomerular Filtration Rate 15 (60-); Glucose, Blood 94 mg/dL (70-99); Phosphorus, Blood 3.9 mg/dL (2.5-4.9); Potassium, Blood 3.7 mmol/L (3.5-5.5); Sodium, Blood 138 mmol/L (136-145)
[2019-03-21 06:59] LABS: Digoxin (Lanoxin) 0.82 ug/mL (0.80-2.00)
[2019-03-21 08:01] LABS: Alanine Aminotransfer (ALT/SGP 71 U/L (12-78); Aspartate Aminotrans (AST/SGOT 45 U/L (12-37)
--- NOTE | 2019-03-21 08:21 | NUR ---
CARE ASSUMED ASSESSMENT COMPLETED, PT SITTING UP IN BED, PLEASANT AND COOPERATIVE WITH CARE. HEPARIN ADJUSTED TO 13U PER ORDERS, ANDRÉSRN AT BEDSIDE TO CONFIRM. TITRATING LEVO DOWN TO KEEP MAP >70, MAP 80'S AT THIS TIME, LEVO 1MCG. HR 80-120 AFIB, PT DENIES CHEST DISCOMFORT, NO SOB AT REST. SPO2 MID 90'S ON 4L/NC. LOW GRADE FEVER PRESENT, BLANKETS REMOVED, ROOM TEMPPERATURE DECREASED. GTT'S INFUSING VIA RIGHT GROIN CENTRAL LINE WITHOUT DIFFICULTY, SITE WNL. FEET ELEVATED ON PILLOWS, PT SITTING UP EATING BREAKFAST, DENIES C/O. PT HAD REPORTED NECK PAIN AT SHIFT CHANGE, MS PREPARED, PT DENIED PAIN UPON THIS RN RE-ENTERING ROOM. ENTIRE DOSE OF MORPHINE WASTED WITH JACQUELIN MORSE.
--- NOTE | 2019-03-21 10:15 | NUR ---
UPDATE 'S BART AND SHELLY IN TO SEE PATIENT. ATTEMPTED TO SHUT OFF LEVO WITHOUT SUCCESS, LEVO NOW INFUSING AT 2MCG. PT RESTING WITH EYES CLOSED, RESPIRATIONS EVEN AND UNLABORED.
--- NOTE | 2019-03-21 12:09 | NUR ---
UPDATE [facility] CALLED TO SPEAK WITH PATIENT, PT DECLINED THEIR SERVICES, CUSTOMER SUPPORT ANALYST NOTIFIED. CXR COMPLETED, PT COOPERATIVE WITH CARE. PT DENIES C/O. ALBUMIN INFUSING PER ORDERS, WILL ATTEMPT TO TITRATE LEVO ABLE. INTERMITTENT CONFUSION AND LOW GRADE FEVERS REMAIN.
--- NOTE | 2019-03-21 15:30 | NUR ---
UPDATE DR. MEAD IN TO SEE PATIENT, NEW ORDERS. P/T IN TO WORK WITH PATIENT, PT COOPERATIVE WITH THERAPY. PT HAD A VISITOR EARLIER, HAS BEEN RESTING SINCE. O/T NOW AT BEDSIDE. LEVOPHED OFF, WILL CONTINUE TO MONITOR VS. PT DENIES C/O, IS VOIDING WITHOUT DIFFICULTY.
--- NOTE | 2019-03-21 18:43 | NUR ---
Initial spiritual care note: Mr. Bentley is non-mormon, and quite personable. He says all if family have except his son. He has been estranged from his son for "decades" and has no idea where he is. Mr. Bentley would like his friend, Boone, to be his MPOA. Advanced directive completed reflecting this wish. Copies made and I hand carried a copy to Medical Records. I will remain available.
--- NOTE | 2019-03-21 19:15 | NUR ---
PT ALERT, FOLLOWING COMMANDS, MOVES ALL EXTREMETIES WEAKLY, C/O OF PAIN 4/10 FUNCTIONAL PAIN GOAL 05/31. HEPARIN INFUSING AT 13U/KG/HR.
--- NOTE | 2019-03-21 19:44 | NUR ---
END OF SHIFT PT SLEPT OFF AND ON THIS AFTERNOON, DENIED PAIN OR C/O, TOLERATED MEALS WELL. LOW GRADE TEMP REMAINS THROUGH SHIFT, OTHER VSS. BP WNL, MAP 70'S-80'S AFTER ALBUMIN, PT REMAINS OFF OF LEVOPHED. HEPARIN INFUSING AT 13U, PTT SENT TO LAB, AWAITING PHARMACY ORDERS. RIGHT GROIN CL WNL, FLUSHING AND DRAWING WELL, DRESSING CHANGED THIS SHIFT AND REMAINS CDI. PT PLEASANT BUT FORGETFUL, CONFUSED AT TIMES. DENIED CHEST DISCOMFORT T/O SHIFT, DENIES SOB AT THIS TIME. SPO2 MID 90'S ON 2L/NC. REPORT TO ONCOMING SHIFT.
--- NOTE | 2019-03-21 19:53 | NUR ---
pt relays he has money and he cant get it from bank withour his mothers certificate. he has difficulty tracking conversation and [facility]. Review with him that APs can help him. pt may not be able to be independent much longer.will review with care manger
[2019-03-22 04:19] LABS: BASOPHILS ABSOLUTE AUTO 0.01 K/mm3 (0.00-0.23); BASOPHILS PERCENT AUTO 0 % (0-2); EOSINOPHILS ABSOLUTE AUTO 0.12 K/mm3 (0.00-0.68); EOSINOPHILS PERCENT AUTO 2 % (0-6); Hematocrit 25.6 % (37.0-53.0); Hemoglobin 8.3 g/dL (13.5-17.5); IMMATURE GRAN ABSOLUTE AUTO 0.04 K/mm3 (0.00-0.10); IMMATURE GRAN PERCENT AUTO 1 % (0-1); LYMPHOCYTES ABSOLUTE AUTO 0.81 K/mm3 (0.84-5.20); LYMPHOCYTES PERCENT AUTO 16 % (21-46); MONOCYTES ABSOLUTE AUTO 0.66 K/mm3 (0.16-1.47); MONOCYTES PERCENT AUTO 13 % (4-13); Mean Corpuscular HGB 33.3 pg (26.0-34.0); Mean Corpuscular HGB Conc 32.4 g/dL (31.5-36.5); Mean Corpuscular Volume 103 fL (80-100); Mean Platelet Volume 12.8 fL (9.1-12.4); NEUTROPHILS ABSOLUTE AUTO 3.42 K/mm3 (1.96-9.15); NEUTROPHILS PERCENT AUTO 68 % (41-73); Platelet Count 58 K/mm3 (150-400); RDW Coefficient Variation 13.3 % (11.7-14.2); RDW Standard Deviation 50.6 fL (35.1-46.3); Red Blood Cell Count 2.49 M/mm3 (4.30-5.90); White Blood Cell Count 5.06 K/mm3 (4.00-11.30)
[2019-03-22 04:34] LABS: Albumin, Blood 2.8 g/dL (3.4-5.0); Albumin/Globulin Ratio 0.7 (0.8-1.8); Bilirubin, Total 0.3 mg/dL (0.1-1.0); Bun/Creatinine Ratio 9.3 (12.0-20.0); Calcium, Blood 8.6 mg/dL (8.5-10.1); Creatinine, Blood 5.59 mg/dL (0.60-1.20); Globulin, Blood 3.8 g/dL (2.2-4.0); Phosphorus, Blood 4.9 mg/dL (2.5-4.9); Total Protein, Blood 6.6 g/dL (6.4-8.2)
[2019-03-22 04:47] LABS: Alanine Aminotransfer (ALT/SGP 61 U/L (12-78); Aspartate Aminotrans (AST/SGOT 51 U/L (12-37); Digoxin (Lanoxin) 0.84 ug/mL (0.80-2.00)
--- NOTE | 2019-03-22 06:17 | NUR ---
PT ALERT, MORE CONGITIVELY INTACT. ON 2L NC. ABLE TO REQUEST BEDPAN, USE URINAL ON OWN, PAIN WITH REPOSITION CONTROLLED WITH MORPHINE, MOST CURRENT ATTP=48.8, HEPARIN TITRATED UP TO 16U/KG/HR PER PHARMACY. ELECTROLYTE WNL. REQUESTED TO SPEAK WITH ASSISTANT TECHNICIAN ABOUT GOING TO A [facility] EVEN IF THEY DO NOT ALLOW ALCOHOL. PT STATES HE DOES NOT REMEMBER REFUSING ANY OF THE PREVIOUS OPTIONS. NO ACUTE EVENTS WILL CONTINUE TO MONITOR.
--- NOTE | 2019-03-22 10:17 | NUR ---
CARE ASSUMED ASSESSMENT COMPLETED, PT CONFUSED AT TIMES BUT APPROPRIATE AND COOPERATIVE WITH CARE. VSS, LEVOPHED REMAINS OFF, O2 2L/NC. HR 80'S-90'S AFIB, PT DENIES SOB OR CHEST DISCOMFORT. FINE CRACKLES NOTED IN BILAT BASES, LE EDEMA MINIMAL. DRESSING TO RIGHT CHEST CDI, CL TO RIGHT GROIN WNL, DRESSING CDI. HEPARIN INFUSING AT 16U PER PHARMACY ORDERS. PT TOLERATED BREAKFAST WELL, THEN GOT UP TO BSC WITH WALKER AND 1 ASST FOR SMALL BM. PT NOW SITTING UP IN CHAIR WATCHING TV AND RESTING. DR. ARRIAGA AND DR. GORE IN TO VISIT, PLAN FOR PERMACATH THIS AFTERNOON AND DIALYSIS TO FOLLOW, PT AGREEABLE TO PLAN. MEDICATED WITH TYLENOL FOR NECK ACHE.
--- NOTE | 2019-03-22 11:55 | NUR ---
PT UP TO BSC FOR BM, THEN TO CHAIR FOR 1.5 HOURS, TOLERATED WELL. BATH GIVEN WHILE IN CHAIR, THEN ASSISTED BACK TO BED. GAIT SLOW BUT STEADY WITH WALKER AND 1 PERSON ASSIST. VSS, SPO2 94% ON RA, PT DENIES C/O. O/T AT BEDSIDE FOR THERAPY.
--- NOTE | 2019-03-22 16:38 | NUR ---
UPDATE 1430: PT TO NECK BAND SETTER FOR PERMACATH PLACEMENT. VSS. 1615: PT RETURNED FROM NECK BAND SETTER AT THIS TIME, DROWSY BUT ORIENTED, APPROPRIATE. VSS, PT DENIES PAIN OR C/O AT THIS TIME. REPOSITIONED IN BED. DIALYSIS NURSE CALLED FOR NEXT DIALYSIS TREATMENT.
--- NOTE | 2019-03-22 17:23 | NUR ---
PT RESTING IN BED RECEIVING DIALYSIS, IS CONFUSED BUT COOPERATIVE. HR 60-80'S AFIB, BP WNL, PT DENIES PAIN. DINNER GIVEN.
--- NOTE | 2019-03-22 19:00 | NUR ---
PT C/O LE PAIN, WILL MEDICATE PER ORDERS. DIALYSIS CONTINUES, SHIATSU THERAPIST AT BEDSIDE. BP INTERMITTENTLY HYPOTENSIVE, PT ASYMPTOMATIC. HR 70'S AFIB. REPORT TO ONCOMING SHIFT.
--- NOTE | 2019-03-22 19:43 | NUR ---
ASSUME CARE PT IN BED, RECEIVING DIALYSIS. ON 2L NC WITH SATS ABOVE 92%. VASOPRESSORS OFF. PATIENT INTERMITTENTLY CONFUSED, BUT FOLLOWS COMMANDS.
--- NOTE | 2019-03-23 06:30 | NUR ---
ASSUME CARE PT REMAINS A&OX3, CONFUSED AT TIMES, BUT FOLLOWS COMMANDS AND APPROPRIATE. NO PRESSURE SUPPORT NEEDED OVERNIGHT. AFEBRILE. VSS. HEPARIN INFUSING AT 16 MCG/KG/HR. NO OTHER ISSUES OVERNIGHT. WILL CONTINUE TO MONITOR
[2019-03-23 06:49] LABS: BASOPHILS ABSOLUTE AUTO 0.03 K/mm3 (0.00-0.23); BASOPHILS PERCENT AUTO 0 % (0-2); EOSINOPHILS ABSOLUTE AUTO 0.12 K/mm3 (0.00-0.68); EOSINOPHILS PERCENT AUTO 2 % (0-6); Hematocrit 24.6 % (37.0-53.0); IMMATURE GRAN PERCENT AUTO 2 % (0-1); LYMPHOCYTES ABSOLUTE AUTO 0.94 K/mm3 (0.84-5.20); LYMPHOCYTES PERCENT AUTO 14 % (21-46); MONOCYTES ABSOLUTE AUTO 0.77 K/mm3 (0.16-1.47); MONOCYTES PERCENT AUTO 12 % (4-13); Mean Corpuscular HGB 32.5 pg (26.0-34.0); Mean Corpuscular HGB Conc 32.5 g/dL (31.5-36.5); Mean Platelet Volume 12.6 fL (9.1-12.4); NEUTROPHILS ABSOLUTE AUTO 4.75 K/mm3 (1.96-9.15); NEUTROPHILS PERCENT AUTO 71 % (41-73); Platelet Count 82 K/mm3 (150-400); RDW Coefficient Variation 13.2 % (11.7-14.2); RDW Standard Deviation 48.6 fL (35.1-46.3); Red Blood Cell Count 2.46 M/mm3 (4.30-5.90); White Blood Cell Count 6.71 K/mm3 (4.00-11.30)
[2019-03-23 06:55] LABS: Mean Corpuscular Volume 100 fL (80-100)
[2019-03-23 07:08] LABS: Albumin, Blood 2.6 g/dL (3.4-5.0); Anion Gap 9 mmol/L (6-16); Blood Urea Nitrogen 36 mg/dL (8-24); CO2, Blood 29 mmol/L (21-32); Calcium, Blood 8.2 mg/dL (8.5-10.1); Chloride, Blood 97 mmol/L (98-108); Creatinine, Blood 3.98 mg/dL (0.60-1.20); Glomerular Filtration Rate 16 (60-); Glucose, Blood 95 mg/dL (70-99); Phosphorus, Blood 4.6 mg/dL (2.5-4.9); Potassium, Blood 3.6 mmol/L (3.5-5.5); Sodium, Blood 135 mmol/L (136-145)
--- NOTE | 2019-03-23 09:52 | NUR ---
CARE ASSUMED CARE AND REPORT ASSUMED FROM EMR SPECIALIST. PT SITTING UPRIGHT IN BED, ANSWERING QUESTIONS AND ALERT. HE IS CONFUSED AT TIMES. VSS. AFIB, HR 70S. BP WNL. HEPARIN GTT INFUSING AT 17 UNITS/HR PER ORDER. CENTRAL LINE SECURED IN FEM ARTERY; WILL REMOVE. PERMACATH SECURED IN L CHEST; DRESSING HAS DRIED DISCHARGE ON IT. JOSS HOUSE KEEPER TO CHANGE DRESSING. UP TO CHAIR WITH 2 PERSON ASSIST. TOLERATED EATING BREAKFAST WITH NO DIFFICULTY. WILL CONTINUE TO MONITOR.
--- NOTE | 2019-03-23 10:39 | NUR ---
DIALYSIS CHANGED DRESSING ON PERMA CATH. SITE CKEAB ABD DRY WUTG SINE DRUED BLOOD. CLEANED WITH CHLORAPREP SPONGE. TRANSDERM DRESSING APPLIED.
--- NOTE | 2019-03-23 11:23 | NUR ---
REASSESSMENT PT SAT UP IN CHAIR FOR APPROX 3 HOURS. NOW BACK INTO BED; 2 PERSON ASSIST. PT HAS EXTREME DIFFICULTY WALKING. VSS. BP WNL. AFIB, HR 70S. AFEBRILE. PERMACATH DRESSING CHANGED BY FAMILY SUPPORT WORKER. PERIPHERAL IV INSERTED. WILL REMOVE CENTRAL LINE. HEPARIN GTT INFUSING AT 17 UNITS/HR PER ORDER. WILL CONTINUE TO MONITOR.
--- NOTE | 2019-03-23 16:13 | NUR ---
REASSESSMENT VSS. NO COMPLAINTS AT THIS TIME. WANTING TO SLEEP. HEPARIN GTT INFUSING AT 18 UNITS/HR PER ORDER.
--- NOTE | 2019-03-23 16:42 | NUR ---
TRANSFER REPORT CALLED TO [facility] ON MEDICAL FLOOR.
--- NOTE | 2019-03-23 17:00 | NUR ---
HEPARIN DRIP VERIFIED WITH PERIANESTHESIA NURSE AND CHRISTIAN IN PHARMACY.
[2019-03-23 17:19] LABS: International Normalized Ratio 1.2; Prothrombin Time Results 12.7 Sec (9.7-11.5)
--- NOTE | 2019-03-23 19:30 | NUR ---
SHIFT SUMMARY- PT TRANSFERED TO MEDICAL FROM ICU. PER REPORT PT ALERT AND ORIENTED WITH EPISODES OF CONFUSION. PT REQUESTED PAIN MEDICATION FOR HIS CHRONIC NECK PAIN SOON HE ARRIVED ON MEDICAL FLOOR GAVE TYLENOL. PT ON TELE AFIB IN THE 80'S ON BEING PLACED ON TELE. PT ASLEEP AT SHIFT CHANGE, NO S&S OF DISTRESS OR PAIN AT THIS TIME. PASSED ON IN BEDSIDE REPORT TO NIGHT RN.
--- NOTE | 2019-03-24 04:15 | NUR ---
SHIFT SUMMARY: PATIENT VERY CONFUSED THIS SHIFT, ASKED SEVERAL DIFFERNET TIMES WHERE HE WAS AND HOW HE GOT HERE. PATIENT BED ALARM ON D/T CONFUSION AND GETTING OOB WITHOUT USING THE CALL LIGHT. PATIENT IS VERY WEAK BUT VSS, LEFT CHEST PERMACATH SIT IS C/D/I AND DOES NOT HAVE ANY SIGNS OF INFECTION. BED LOW AND LOCKED AND STAFF MONITORING PATIENT CLOSELY.
[2019-03-24 05:59] LABS: BASOPHILS ABSOLUTE AUTO 0.04 K/mm3 (0.00-0.23); BASOPHILS PERCENT AUTO 1 % (0-2); EOSINOPHILS ABSOLUTE AUTO 0.16 K/mm3 (0.00-0.68); EOSINOPHILS PERCENT AUTO 2 % (0-6); Hematocrit 26.8 % (37.0-53.0); Hemoglobin 8.6 g/dL (13.5-17.5); IMMATURE GRAN ABSOLUTE AUTO 0.22 K/mm3 (0.00-0.10); IMMATURE GRAN PERCENT AUTO 3 % (0-1); LYMPHOCYTES ABSOLUTE AUTO 1.41 K/mm3 (0.84-5.20); LYMPHOCYTES PERCENT AUTO 18 % (21-46); MONOCYTES ABSOLUTE AUTO 0.74 K/mm3 (0.16-1.47); MONOCYTES PERCENT AUTO 9 % (4-13); Mean Corpuscular HGB 32.3 pg (26.0-34.0); Mean Corpuscular HGB Conc 32.1 g/dL (31.5-36.5); Mean Corpuscular Volume 101 fL (80-100); NEUTROPHILS ABSOLUTE AUTO 5.28 K/mm3 (1.96-9.15); NEUTROPHILS PERCENT AUTO 67 % (41-73); NRBC ABSOLUTE 0.02 K/mm3 (0.00-0.02); NRBC Auto 0.3 /100 WBC (0.0-0.2); Platelet Count 123 K/mm3 (150-400); RDW Coefficient Variation 13.5 % (11.7-14.2); RDW Standard Deviation 49.4 fL (35.1-46.3); Red Blood Cell Count 2.66 M/mm3 (4.30-5.90); White Blood Cell Count 7.85 K/mm3 (4.00-11.30)
[2019-03-24 06:05] LABS: Mean Platelet Volume 13.5 fL (9.1-12.4)
[2019-03-24 06:16] LABS: International Normalized Ratio 1.19; Prothrombin Time Results 12.6 Sec (9.7-11.5)
[2019-03-24 06:22] LABS: Albumin, Blood 2.7 g/dL (3.4-5.0); Anion Gap 12 mmol/L (6-16); Blood Urea Nitrogen 57 mg/dL (8-24); Bun/Creatinine Ratio 10.9 (12.0-20.0); CO2, Blood 25 mmol/L (21-32); Calcium, Blood 8.6 mg/dL (8.5-10.1); Chloride, Blood 97 mmol/L (98-108); Creatinine, Blood 5.21 mg/dL (0.60-1.20); Glomerular Filtration Rate 12 (60-); Glucose, Blood 108 mg/dL (70-99); Phosphorus, Blood 6.1 mg/dL (2.5-4.9); Potassium, Blood 3.7 mmol/L (3.5-5.5); Sodium, Blood 134 mmol/L (136-145)
--- NOTE | 2019-03-24 17:36 | NUR ---
SHIFT SUMMARY NO ACUTE CHANGES. PATIENT MEDICATED X1 FOR PAIN. DENIES NAUSEA AND SHORTNESS OF BREATH. PATIENT UP ONE ASSIST WITH FWW. PATIENT WORKED WITH PT. PATIENT VERY WEAK. PATIENT HAD DIALYSIS IN THE ROOM TODAY. CALL LIGHT IN REACH.
--- NOTE | 2019-03-25 01:47 | NUR ---
Bed alarm on, tried to get out of bed without assist, pulled IV tubing apart. Tubing replaced, assisted to bathroom. IV Heparin drip continues. Call light in reach. Bed alarm back on. Resting quietly at this time.
[2019-03-25 05:44] LABS: Hematocrit 28.1 % (37.0-53.0); Mean Corpuscular Volume 100 fL (80-100); NRBC ABSOLUTE 0.06 K/mm3 (0.00-0.02); NRBC Auto 0.7 /100 WBC (0.0-0.2); Platelet Count 196 K/mm3 (150-400); RDW Coefficient Variation 13.6 % (11.7-14.2); RDW Standard Deviation 49.3 fL (35.1-46.3); Red Blood Cell Count 2.81 M/mm3 (4.30-5.90); White Blood Cell Count 8.94 K/mm3 (4.00-11.30)
[2019-03-25 05:57] LABS: International Normalized Ratio 1.44; Prothrombin Time Results 15.1 Sec (9.7-11.5)
[2019-03-25 06:17] LABS: Albumin, Blood 2.6 g/dL (3.4-5.0); Anion Gap 10 mmol/L (6-16); Blood Urea Nitrogen 40 mg/dL (8-24); Bun/Creatinine Ratio 9.4 (12.0-20.0); CO2, Blood 27 mmol/L (21-32); Calcium, Blood 8.6 mg/dL (8.5-10.1); Chloride, Blood 98 mmol/L (98-108); Creatinine, Blood 4.27 mg/dL (0.60-1.20); Glomerular Filtration Rate 15 (60-); Glucose, Blood 96 mg/dL (70-99); Phosphorus, Blood 5.4 mg/dL (2.5-4.9); Potassium, Blood 3.9 mmol/L (3.5-5.5); Sodium, Blood 135 mmol/L (136-145)
--- NOTE | 2019-03-25 17:28 | NUR ---
SHIFT SUMMARY PATIENT DENIES PAIN, NAUSEA, AND SHORTNESS OF BREATH. PATIENT UP 1 ASSIST W/FWW AND GAIT BELT. HEPARIN DRIP RUNNING AT 19 UNITS/29.6 MLS/HR. PATIENT WATCHING SUPERBOWL THIS AFTERNOON AND IN GOOD SPIRITS. CALL LIGHT IN REACH.
--- NOTE | 2019-03-26 03:32 | NUR ---
rECEIVED MELATONIN PO EARLIER IN SHIFT AFTER MD WAS NOTIFIED OF PT C/O INSOMNIA. APPEARED T SLEEP A FEW HOURS BUT AWAKENED A WHILE AGO AND DECIDED TO WATCH TV. HEPARIN DRIP CONTINUES - SEE MAR FOR DETAILS. NO CHANGE IN DOSE OF THIS WRITING. CALL LIGHT IN REACH. WILL CONTINUE TO MONITOR.
[2019-03-26 05:14] LABS: Hematocrit 26.3 % (37.0-53.0); Hemoglobin 8.4 g/dL (13.5-17.5); Mean Corpuscular HGB 32.1 pg (26.0-34.0); Mean Corpuscular HGB Conc 31.9 g/dL (31.5-36.5); Mean Corpuscular Volume 100 fL (80-100); Mean Platelet Volume 12.5 fL (9.1-12.4); Platelet Count 194 K/mm3 (150-400); RDW Coefficient Variation 14.2 % (11.7-14.2); RDW Standard Deviation 50.2 fL (35.1-46.3); Red Blood Cell Count 2.62 M/mm3 (4.30-5.90); White Blood Cell Count 7.91 K/mm3 (4.00-11.30)
[2019-03-26 05:33] LABS: International Normalized Ratio 1.84
[2019-03-26 05:34] LABS: Albumin, Blood 2.4 g/dL (3.4-5.0); Anion Gap 10 mmol/L (6-16); Blood Urea Nitrogen 59 mg/dL (8-24); Bun/Creatinine Ratio 10.5 (12.0-20.0); CO2, Blood 25 mmol/L (21-32); Calcium, Blood 8.8 mg/dL (8.5-10.1); Chloride, Blood 99 mmol/L (98-108); Creatinine, Blood 5.64 mg/dL (0.60-1.20); Glomerular Filtration Rate 11 (60-); Glucose, Blood 103 mg/dL (70-99); Phosphorus, Blood 7.6 mg/dL (2.5-4.9); Potassium, Blood 4.2 mmol/L (3.5-5.5); Sodium, Blood 134 mmol/L (136-145)
--- NOTE | 2019-03-26 15:00 | NUR ---
Daniel Mortensen, a [facility] clinical nursing instructor, was given permission by Shar Bentley on 03/26/2019 to provide care for Shar Bentley on 03/27/2019.
--- NOTE | 2019-03-26 15:27 | NUR ---
pt on dialysis revew plan with staff for future needs.
--- NOTE | 2019-03-26 16:01 | NUR ---
The patient gives this student nurse permission to aid in his morning care on 03/27/2019
--- NOTE | 2019-03-26 18:36 | NUR ---
SHIFT SUMMARY. A&OX3, PLEASANT AND COOPERATIVE. PT IS SBA TO BATHROOM WITH PERSONAL WALKER. USES URINAL AT BEDSIDE. PT REPORTS CHRONIC BILATERAL HIP PAIN THAT IS MANAGED WELL WITH PRN APAP. NO N/V, SOB. PT DIALYZED TODAY. CONTINUES WITH HEPERIN GTT. NO NEW CHANGES OR CONCERNS.
--- NOTE | 2019-03-27 02:18 | NUR ---
SLEPT MORE THIS SIFT THAN NOTED 24 HRS PREVIOUS AFTER RECEIVING HS SLEEP MED. HEPARIN DRIP CONTINUES, HAVING BEEN READJUSTED DOSAGE TO 17 UNITS OR 26.5 ML/HR AND NEXT BLOOD DRAW SCHEDULED AT 0800 AM. MORE STEADY ON FEET, BUT STILL NEEDING MAJOR ASSIST WITH AMBULATION TO BATHROOM. STATED HE FELT HE IS NOT READY TO BE DISCHARGED AND STATED HE WANTED TO SPEAK WITH THE PT REP THIS AM. CHARGE NURSE NOTIFIED, WILL PASS THIS ON TO AM NURSE FOR FOLLOW UP. CALL LIGHT IN REACH.
[2019-03-27 08:26] LABS: Hematocrit 26.1 % (37.0-53.0); Hemoglobin 8.2 g/dL (13.5-17.5); Mean Corpuscular HGB 31.9 pg (26.0-34.0); Mean Corpuscular HGB Conc 31.4 g/dL (31.5-36.5); Mean Corpuscular Volume 102 fL (80-100); Mean Platelet Volume 11.8 fL (9.1-12.4); Platelet Count 233 K/mm3 (150-400); RDW Coefficient Variation 14.3 % (11.7-14.2); RDW Standard Deviation 51.8 fL (35.1-46.3); Red Blood Cell Count 2.57 M/mm3 (4.30-5.90); White Blood Cell Count 7.76 K/mm3 (4.00-11.30)
[2019-03-27 08:37] LABS: International Normalized Ratio 2.3; Prothrombin Time Results 23.5 Sec (9.7-11.5)
[2019-03-27 08:43] LABS: Albumin, Blood 2.5 g/dL (3.4-5.0); Anion Gap 9 mmol/L (6-16); Blood Urea Nitrogen 40 mg/dL (8-24); Bun/Creatinine Ratio 8.7 (12.0-20.0); CO2, Blood 28 mmol/L (21-32); Calcium, Blood 8.5 mg/dL (8.5-10.1); Chloride, Blood 97 mmol/L (98-108); Glomerular Filtration Rate 13 (60-); Glucose, Blood 91 mg/dL (70-99); Sodium, Blood 134 mmol/L (136-145)
--- NOTE | 2019-03-27 12:13 | NUR ---
SHIFT SUMMARY. 1130 PT DISCHARGED TO [facility] VIA W/C TRANSPORT. D/C PACKET SENT WITH ACID OPERATOR. BELONGINGS WITH PT INCLUDING 4 WHEELED WALKER. IV REMOVED. HEPERAIN DRIP STOPPED TODAY PER ORDERS, PT/INR THERAPEUTIC. NO NEW CHANGES OR CONCERNS.
--- NOTE | 2019-03-27 12:16 | NUR ---
1150 REPORT GIVEN TO LORAINE GRANT AT [facility].
[2019-03-27] MEDS ORDERED: ASPI81CH PO (12:47)
[2019-03-27] MEDS ORDERED: Lipitor20 MG PO (12:48)
[2019-03-27] MEDS ORDERED: LUBRICANT EYE D15 M1 BOTHEYES (12:49)
[2019-03-27] MEDS ORDERED: CEFAZOLIN2 GM/50 ML IV (12:52)
[2019-03-27] MEDS ORDERED: Vsl#3 Capsule1 EACH (12:53)
[2019-03-27] MEDS ORDERED: MELA3 PO (12:53)
[2019-03-27] MEDS ORDERED: WARF2.5 PO (12:54)
== END 2019-03-27 11:30 | DRG 314 ==
LOC: ER 12:18 → ICUW 15:43 → MEDS 15:43 → ICUE 15:43 → MEDS 03-23 16:53
PROVIDERS: Emergency Medicine; Internal Medicine; Internal Medicine Cardiovascular Disease; Internal Medicine Critical Care Medicine; Pharmacist; Surgery; ADMIT Internal Medicine
PROC: 02HV33Z Insertion of Infusion Device into Superior Vena Cava, Percutaneous Approach (ICD-10-PCS; 2019-03-18)
PROC: 05HM33Z Insertion of Infusion Device into Right Internal Jugular Vein, Percutaneous Approach (ICD-10-PCS; principal; 2019-03-20 12:15)
PROC: 05PY33Z Removal of Infusion Device from Upper Vein, Percutaneous Approach (ICD-10-PCS; 2019-03-20 12:15)
DX: T82.7XXA Infection and inflammatory reaction due to other cardiac and vascular devices, implants and grafts, initial encounter (principal); A40.0 Sepsis due to streptococcus, group A; R65.21 Severe sepsis with septic shock; G93.41 Metabolic encephalopathy; N18.6 End stage renal disease; N39.0 Urinary tract infection, site not specified; I48.20 Chronic atrial fibrillation, unspecified; I12.0 Hypertensive chronic kidney disease with stage 5 chronic kidney disease or end stage renal disease; N17.9 Acute kidney failure, unspecified; I72.3 Aneurysm of iliac artery; I71.4 Abdominal aortic aneurysm, without rupture; J84.10 Pulmonary fibrosis, unspecified; D63.1 Anemia in chronic kidney disease; Z99.2 Dependence on renal dialysis; D69.49 Other primary thrombocytopenia; Z79.82 Long term (current) use of aspirin; F17.210 Nicotine dependence, cigarettes, uncomplicated; Z59.0 Homelessness
CPT/HCPCS: 36415; 36556; 36558; 70450; 71045; 74177; 76937; 77001; 80053; 80061; 80069; 80162; 80202; 81001; 83605; 83735; 84100; 84443; 84450; 84460; 84484; 85025; 85027; 85610; 85730; 87040; 87070; 87077; 87081; 87086; 87147; 87186; 87804; 93005; 93010; 93306; 96361; 96365; 96367; 97110; 97116; 97162; 97166; 97530; 97535; 99152; 99153; 99285-25; A9270; C1750; C1751; C1769; C1887; G0480; J0690; J0696; J0881; J1160; J1644; J2250; J2270; J2370; J2543; J2704; J2997; J3010; J3370; J7030; J7040; J7050; J7060; J7120; P9046; Q9967

== ENCOUNTER 2019-07-11 18:01 | Inpatient (IN) | payer OTHER, MEDICARE ==
[~2019-07-11] VITALS: Ht 177.8 cm; Wt 68.0 kg
[~2019-07-11 18:01] MED LIST changes: +Artificial Tea1 EACH BOTHEYES; +Aspirin EC81 MG PO; +CEFAZOLIN2 GM/50 ML IV; +Lipitor20 MG PO; +MELA3 PO; +Vsl#3 Capsule1 EACH; +WARF2.5 PO
[2019-07-11 18:46] LABS: BASOPHILS ABSOLUTE AUTO 0.05 K/mm3 (0.00-0.23); BASOPHILS PERCENT AUTO 1 % (0-2); EOSINOPHILS ABSOLUTE AUTO 0.26 K/mm3 (0.00-0.68); EOSINOPHILS PERCENT AUTO 4 % (0-6); Hematocrit 31.1 % (37.0-53.0); Hemoglobin 9.8 g/dL (13.5-17.5); IMMATURE GRAN ABSOLUTE AUTO 0.03 K/mm3 (0.00-0.10); IMMATURE GRAN PERCENT AUTO 1 % (0-1); LYMPHOCYTES ABSOLUTE AUTO 1.29 K/mm3 (0.84-5.20); LYMPHOCYTES PERCENT AUTO 20 % (21-46); MONOCYTES ABSOLUTE AUTO 0.62 K/mm3 (0.16-1.47); MONOCYTES PERCENT AUTO 9 % (4-13); Mean Corpuscular HGB 33.1 pg (26.0-34.0); Mean Corpuscular HGB Conc 31.5 g/dL (31.5-36.5); Mean Corpuscular Volume 105 fL (80-100); Mean Platelet Volume 10.8 fL (9.1-12.4); NEUTROPHILS ABSOLUTE AUTO 4.35 K/mm3 (1.96-9.15); NEUTROPHILS PERCENT AUTO 66 % (41-73); Platelet Count 145 K/mm3 (150-400); RDW Coefficient Variation 15.1 % (11.7-14.2); RDW Standard Deviation 58.2 fL (35.1-46.3); Red Blood Cell Count 2.96 M/mm3 (4.30-5.90)
[2019-07-11] MEDS ORDERED: Calcium Acetat667 MG PO (18:52)
[2019-07-11] MEDS ORDERED: BUPR150ER PO (18:52)
[2019-07-11 19:04] LABS: Magnesium, Blood 3.1 mg/dL (1.6-2.4)
[2019-07-11 19:09] LABS: Albumin, Blood 3.5 g/dL (3.4-5.0); Albumin/Globulin Ratio 0.8 (0.8-1.8); Bilirubin, Total 0.4 mg/dL (0.1-1.0); Calcium, Blood 9.5 mg/dL (8.5-10.1); Creatinine, Blood 9.4 mg/dL (0.60-1.20); Globulin, Blood 4.3 g/dL (2.2-4.0); Phosphorus, Blood 7.9 mg/dL (2.5-4.9); Potassium, Blood 5.1 mmol/L (3.5-5.5); Total Protein, Blood 7.8 g/dL (6.4-8.2)
[2019-07-11 20:12] LABS: International Normalized Ratio 1.12; Prothrombin Time Results 11.9 Sec (9.7-11.5)
[2019-07-11 22:17] LABS: U Amphetamine Screen Not Detected; U Barbituate Screen Not Detected; U Benzodiazapine Screen Not Detected; U Buprenorphine Screen Not Detected; U Cannabinoids Screen Not Detected; U Cocaine Screen Not Detected; U Methadone Screen Not Detected; U Methamphetamine Screen Not Detected; U Opiates Screen Not Detected; U Oxycodone Screen Not Detected; U Phencyclidine Screen Not Detected; U Propoxyphene Screen Not Detected
--- NOTE | 2019-07-11 23:12 | NUR ---
PHYSICIAN COMMUNICATION CONTACTED THE SUPERVISOR GREEN END DEPARTMENT PHYSICIAN, SAW, TO NOTIFY HIM THAT THE PATIENT'S HEART RATE HAD CATHERINE'D DOWN FROM MID 50'S TO MID 40'S SINCE HIS ADMIT. THIS RN ALSO RELAYED THAT THE PATIENT'S VITALS WERE STABLE AND THE PATIENT WAS ASYMPTOMATIC. SAW ORDERED ATROPINE 0.5 MG IV Q 5 MINUTES X3 PRN FOR A HEART RATE LESS THAN 35. HE ALSO ORDERED AN EKG FOR THE MORNING.
[2019-07-12 03:08] LABS: BASOPHILS ABSOLUTE AUTO 0.03 K/mm3 (0.00-0.23); BASOPHILS PERCENT AUTO 1 % (0-2); EOSINOPHILS ABSOLUTE AUTO 0.22 K/mm3 (0.00-0.68); EOSINOPHILS PERCENT AUTO 4 % (0-6); Hematocrit 29.5 % (37.0-53.0); Hemoglobin 9.4 g/dL (13.5-17.5); IMMATURE GRAN ABSOLUTE AUTO 0.01 K/mm3 (0.00-0.10); IMMATURE GRAN PERCENT AUTO 0 % (0-1); LYMPHOCYTES ABSOLUTE AUTO 1.19 K/mm3 (0.84-5.20); LYMPHOCYTES PERCENT AUTO 23 % (21-46); MONOCYTES ABSOLUTE AUTO 0.64 K/mm3 (0.16-1.47); MONOCYTES PERCENT AUTO 12 % (4-13); Mean Corpuscular HGB 32.9 pg (26.0-34.0); Mean Corpuscular HGB Conc 31.9 g/dL (31.5-36.5); Mean Corpuscular Volume 103 fL (80-100); Mean Platelet Volume 10.7 fL (9.1-12.4); NEUTROPHILS ABSOLUTE AUTO 3.15 K/mm3 (1.96-9.15); NEUTROPHILS PERCENT AUTO 60 % (41-73); Platelet Count 152 K/mm3 (150-400); RDW Standard Deviation 56.6 fL (35.1-46.3); Red Blood Cell Count 2.86 M/mm3 (4.30-5.90); White Blood Cell Count 5.24 K/mm3 (4.00-11.30)
[2019-07-12 03:33] LABS: Magnesium, Blood 3.1 mg/dL (1.6-2.4)
[2019-07-12 03:39] LABS: Albumin, Blood 3.2 g/dL (3.4-5.0); Albumin/Globulin Ratio 0.8 (0.8-1.8); Bilirubin, Total 0.3 mg/dL (0.1-1.0); Bun/Creatinine Ratio 9.4 (12.0-20.0); Calcium, Blood 9.1 mg/dL (8.5-10.1); Creatinine, Blood 9.51 mg/dL (0.60-1.20); Globulin, Blood 4.2 g/dL (2.2-4.0); Total Protein, Blood 7.4 g/dL (6.4-8.2)
--- NOTE | 2019-07-12 06:27 | NUR ---
SHIFT SUMMARY PATIENT ARRIVED TO THE UNIT FROM ER VIA STRETCHER. HE IS A&O X3, SHOWS SOME CONFUSION. PATIENT IS UNSTEADY ON HIS FEET, HAD FOUR WHEELED WALKER FROM HOME. PATIENT IS OCCASIONALLY INCONTINENT WHEN IN CONFUSED STATE. PATIENT IS ON TELE WHICH SHOWS HIS RHYTHM TO BE IN AFIB. IV IN RIGHT FOREARM IS PATENT AND FLUSHED. BED IN LOWEST POSITION WITH WHEELS LOCKED AND ALARM ON. CALL LIGHT WITHIN REACH. REPORT GIVEN TO ONCOMING RN.
--- NOTE | 2019-07-12 07:21 | NUR ---
ASSUMED CARE OF PT- BEDSIDE REPORT COMPLETED WITH NIGHT JACQUELIN LITTLE. PER REPORT PT WAS ADMITTED LAST NIGHT, PT HAS A MIDDLEKAUFF CONSULT FOR POSSIBLE DEMENTIA, PT HAS A NEPHROLOGY CONSULT FOR DIALYSIS. PT HAS A PERMACATH IN THE LEFT CHEST WALL. PER REPORT PLAN IS FOR DIALYSIS TODAY, PT PLEASENTLY CONFUSED DURING REPORT; HOWEVER BECAME IRATE WITH THE CUSTOM BIKE BUILDER, TELLING HIME "GET OUT, I DONT LIKE YOU" PT REFUSED MORNING VITALS AND ALL ASSISTANCE FROM THE CUSTOM BIKE BUILDER. CUSTOM BIKE BUILDER STILL EMPTIED TRASH AND URINAL AND PROVIDED THE PT WITH FRESH WATER TO DRINK. UNCERTAIN WHAT PROMPTED THE OUTBURST. RECIEVED A CALL FROM DIALYSIS, PT TO GO DOWN FOR TREATMENT SOON SECOND STAFF MEMBER ARRIVES, ALBERT WILL CALL AT THAT TIME. PT CURRENTLY IN BED WITH HIS CALL LIGHT IN REACH, BED ALARM ON FOR SAFETY.
--- NOTE | 2019-07-12 19:40 | NUR ---
SHIFT SUMMARY- PT CONTINUES TO BE CONFUSED. PT SEEMS TO THINK HE WAS SUPPOSED TO PICK HIS UP AT THE [facility], THE PT HAS BEEN FOR A WHILE NOW. PT HAS A GUARDIAN PHONE NUMBER LISTED IN THE CHART (ELLEN) PT CALLED ELLEN ONCE AND HE WAS ABLE TO REORIENT THE PT. PT HAD DIALYSIS TODAY AND THE PLAN IS TO REPEAT IT TOMORROW. PT IS AWARE. HOWEVER PT FREQUENTLY FORGETS WHY HE IS IN THE HOSPITAL; PT BECAME VERY UPSET THAT STAFF DID NOT HAVE THE NUMBER FOR THE [place], HE WAS TRYING TO CALL HIS . PT FREQUENTLY PUSHES THE CALL BUTTON THINKING HE IS CALLING THE BUNG REMOVER. FREQUENT REORIENTATION SEEMS TO KEEP HIM FORM BECOMING ANGRY. PASSED ALL ON IN REPORT TO NIGHT RN.
[2019-07-13 05:41] LABS: Bun/Creatinine Ratio 9.2 (12.0-20.0); Calcium, Blood 9.4 mg/dL (8.5-10.1); Creatinine, Blood 6.42 mg/dL (0.60-1.20); Potassium, Blood 5.4 mmol/L (3.5-5.5)
--- NOTE | 2019-07-13 06:16 | NUR ---
SHIFT SUMMARY PATIENT ALERT, ALTHOUGH CONFUSED OVERNIGHT. FORGETS TO USE HIS CALL LIGHT WHEN NEEDING TO GET UP TO USE THE RESTROOM. IV PATENT AND FLUSHED. BED IN LOWEST POSITION WITH WHEELS LOCKED AND ALARM ON. CALL LIGHT WITHIN REACH. REPORT GIVEN TO ONCOMING RN.
--- NOTE | 2019-07-13 19:36 | NUR ---
SHIFT SUMMARY- PT CONTINUES TO BE PLEASENTLY CONFUSED. PT SPENT SEVERAL HOURS MAKING PHONE CALLS. PT MANAGED TO GET THE PHONE NUMBER TO HIS PREVIOUS PLACE OF EMPLOYMENT (PT IS RETIRED). PT BECAME VERY AGGITATED THAT THEY DID NO KNOE WHO HE WAS. PT WAS BEGINNING TO BECOME MORE AGGITATED CALLING REPEATEDLY. FRONT DEST RECIEVED A PHONE CALL FROM THE PLACE. PT WENT INTO THE BATHROOM TO SHAVE AND DO A SPOUNGE BATH AROUND 5PM. WHEN HE GOT BACK TO THE BED HE AGAIN TRIED TO MAKE A PHONE CALL AND THE PHONE WOULD NOT TURN ON. STAFF TOLD THE PT THEY WILL CONTACT [facility] TO GET A NEW PHONE TOMORROW. PASSED ALL ON IN REPORT TO NIGHT RN. PT RECIEVED DIALYSIS AGAIN TODAY AND THE PLAN IS TO REPEAT IT AGAIN TOMORROW. BED ALARM ON FOR SAFETY, PT DOES NOT LIKE THIS BUT HE IS STILL UNSTEADY ON HIS FEET.
--- NOTE | 2019-07-13 20:10 | NUR ---
PT HAS BECOME AGGITATED AND CONFUSED, CONTINUES TO ATTEMPT TO LEAVE. NURSE NOTIFIED
--- NOTE | 2019-07-14 06:13 | NUR ---
SHIFT SUMMARY PT IS A 68 Y/O MALE, ADMITTED FOR ESRD AND DIALYSIS. PERMACATH IN PLACE IN L CHEST WALL. HE IS A&O X SELF AND FAMILY, AND VERY CONFUSED. PT TOLD THIS RN THAT HIS " IS FLYING IN FROM [place] TO MEET ME", AND THAT HE NEEDED TO LEAVE TO GO MEET HER (UNAWARE THAT HE IS CURRENTLY ). PT ALSO REPORTED THAT HE WAS IN A HOTEL AND HAD A HOUSE IN "THIS AREA". PT BECAME VERY IRRITABLE AND AGITATED WHEN TOLD THAT IS WASN'T SAFE FOR HIM TO LEAVE, AND WAS PERSUADED TO STAY UNTIL MORNING WHEN HE COULD SPEAK WITH A DOCTOR. PT IS VERY FORGETFUL OF HIS LIMITATIONS. NO COMPLAINTS OF PAIN, NAUSEA OR SOB. VITAL SIGNS STABLE. PT SLEPT WELL WITH PO MELATONIN, THOUGH HE REFUSED THE SQ HEPARIN. NO OTHER ACUTE CHANGES IN PT CONDITION NOTED. WILL CONTINUE TO MONITOR AND TREAT PER EMAR UNTIL HAND OFF TO DAY SHIFT RN.
--- NOTE | 2019-07-14 13:22 | NUR ---
TRANSFER TO SCU PATIENT TRANSFERED TO SPECIAL CARE UNIT DUE TO FALL RISK AND IMPULSIVITY. REPORT GIVEN TO ASHLIE ROPER.
--- NOTE | 2019-07-14 13:40 | NUR ---
Assumed care Patient transferred from MED 359 to MED 344. Arrived to room with belongings via w/c. Patient has street clothes on. Received report from JACQUELIN Seo. Remote monitors verified on and patient is visible. Patient states he is going home today so he does not want to get into bed, instead currently sitting in chair with chair alarm on for safety. So far, patient has been pleasant. Call light near, will continue to monitor.
--- NOTE | 2019-07-14 17:52 | NUR ---
Shift Summary A/O to self, patient needs many reminders as to why he is in the hospital and remains so. Up in chair for most of the shift, up with SBA and walker. Patient is confabulatory making up stories about living with and stating that is sick so he needs to leave to tend to his . Does not use call light appropriately, forgetful of limitations, and confused. No other acute concerns at this time. Will continue to monitor.
--- NOTE | 2019-07-15 02:53 | NUR ---
PT STATING HE IS GOING AT START OF SHIFT. SITTING UP IN CHAIR W/STREET CLOTHES AND SHOES ON AND BELONGINGS PACKED IN STORAGE AREA OF WALKER SEAT. PT HAD HIS TELE PSYCH CONSULT. REQUESTING TO BE DISCHARGED AFTERWARD. SPOKE W/PT ABOUT HIS PLAN UPON LEAVING. PT STATES HE WILL CALL A CAB AND GET A RIDE TO THE [facility]. WAS ABLE TO ANSWER ORIENTATION QUESTIONS APPROPRIATELY. ABLE TO EXPLAIN WHY HE IS IN THE HOSPITAL. SOME CONFUSION STILL EVIDENT. PT SOUNDED ALARM ONCE WHEN GETTING UP TO LOOK FOR THE COMPUTER USED FOR HIS TELE PSYCH CONSULT. REQUESTING IT TO USE A TV INSTEAD OF THE ONE MOUNTED ON THE WALL. REDIRECTS EASILY. PT ABLE TO EXPLAIN THE REASON FOR HIS MEDS. PT AGREED THAT AT 0 IT WAS LATE TO BE ARRIVING AT THE [facility] NOT KNOWING IF THERE WAS A BED AVAILABLE FOR HIM. AGREED TO STAY THE NIGHT AT LEAST TO ENSURE HE HAS A SOLID DISCHARGE PLAN. PT ANXIOUS TO LEAVE THE HOSPITAL DURING THE DAYTIME BUT IS COOPERATIVE AND PLEASANT ABOUT STAYING THE NIGHT. EVEN STATING APPRECIATION TO HAVE A WARM BED TO SLEEP IN AT THE HOSPITAL.
--- NOTE | 2019-07-15 04:34 | NUR ---
SHIFT SUMMARY: VSS. AFEB. A/OX3. OCCASIONAL STRANGE STATEMENTS/CONFABULATIONS. OVERALL PT IS COOPERATIVE AND PLEASANT. EASILY REDIRECTABLE. FORGETFUL ABOUT USING CALL BUTTON. AMBULATES W/4WW AND SBA IN ROOM. GAIT APPEARS STABLE. INDEPENDENTLY CHANGED INTO HOSPITAL GOWN FROM HIS STREET CLOTHES WITHOUT DIFFICULTY. MAKING NEEDS KNOWN. HAS SLEPT WELL THROUGH THE NIGHT. TELE MONITOR SHOWING ATRIAL FLUTTER PER CONTRACT GRAPHIC DESIGNER. NO ACUTE CHANGES OVERNIGHT. WILL CONT TO MONITOR.
[2019-07-15 10:01] LABS: Albumin, Blood 3.2 g/dL (3.4-5.0); Anion Gap 9 mmol/L (6-16); Blood Urea Nitrogen 83 mg/dL (8-24); Bun/Creatinine Ratio 11.8 (12.0-20.0); CO2, Blood 26 mmol/L (21-32); Calcium, Blood 9.8 mg/dL (8.5-10.1); Chloride, Blood 101 mmol/L (98-108); Creatinine, Blood 7.02 mg/dL (0.60-1.20); Glomerular Filtration Rate 8 (60-); Glucose, Blood 112 mg/dL (70-99); Phosphorus, Blood 5.5 mg/dL (2.5-4.9); Potassium, Blood 5.8 mmol/L (3.5-5.5); Sodium, Blood 136 mmol/L (136-145)
--- NOTE | 2019-07-15 17:45 | NUR ---
Shift Summary A/Ox3, pleasant and cooperative with care. Had dialysis today, tolerated well. 1P SBA c 4WW, uses call light appropriately and has not been adamant about going home. Had a shower today with PASTRY SUPERVISOR assisting. No complaints of pain. Tele: Afib 62 per robotic technician. Patient awaiting safe discharge plan. Appetite is good, gait is steady when patient is not anxious/agitated and using 4WW. Seems to be aware of limitations and does not attempt to walk without patient's walker. No other concerns, will continue to monitor.
--- NOTE | 2019-07-16 03:30 | NUR ---
SHIFT SUMMARY: VSS. AFEB. AAOX3 W/OCCASIONAL CONFABULATED STATEMENTS. SAYING HE WILL BE LEAVING IN THE MORNING BECAUSE HE HAS TO WORK. PT ALSO AWARE HE NEEDS TO WAIT TO BE DISCHARGED UNTIL GUARDIANSHIP IS OBTAINED. WOKE UP THIS AM W/INCONTINENT DIARRHEA X 1. WILL CONT TO MONITOR THIS. NO N/V. DIALYSIS PORT ON L UPPER CHEST W/DRESSING CDI. NO ERYTHEMA AT INSERTION SITE. COOPERATIVE W/ CARES AND PLEASANT. MAKES NEEDS KNOWN. TELE SHOWING ATRIAL FLUTTER. GAIT IS STABLE WHEN USING 4WW, WHICH PT IS CONSISTENT ABOUT USING.
[2019-07-16 09:29] LABS: Hematocrit 33.5 % (37.0-53.0); Hemoglobin 10.6 g/dL (13.5-17.5)
[2019-07-16 09:46] LABS: Albumin, Blood 3.4 g/dL (3.4-5.0); Anion Gap 8 mmol/L (6-16); Blood Urea Nitrogen 69 mg/dL (8-24); CO2, Blood 27 mmol/L (21-32); Calcium, Blood 9.5 mg/dL (8.5-10.1); Chloride, Blood 101 mmol/L (98-108); Creatinine, Blood 5.74 mg/dL (0.60-1.20); Glomerular Filtration Rate 10 (60-); Glucose, Blood 152 mg/dL (70-99); Phosphorus, Blood 4.3 mg/dL (2.5-4.9); Potassium, Blood 5.6 mmol/L (3.5-5.5); Sodium, Blood 136 mmol/L (136-145)
--- NOTE | 2019-07-16 12:16 | NUR ---
BACK FROM DIALYSIS. PERMACATH DID NOT WORK, SO CONSULT IN FOR REPLACEMENT.
--- NOTE | 2019-07-16 15:01 | NUR ---
ALERT TO SELF.CONFUSED AT TIMES. PER CHART LIVES AT [facility] AND IS DIVORICED. HAS BEEN TRYING ALL SHIFT TO CALL , BUT DOES NOT HAVE NUMBER AND NONE IN CHART. PER DIALYSIS PERMA CATH TO LT C.W. DOES NOT WORK AND CONSULT IN FOR TOMORROW. COOPERATIVE. IMPULSIVE UNLABORED RESPIRATIONS. WCTM
--- NOTE | 2019-07-16 15:27 | NUR ---
CALLED POA, ELLEN VILLALBA, TO GET INFO ON PATIENT SUCH ABOUT ETC. STS PATIENT HAS HAD NO CONTACT WITH EX FOR QUITE AWHILE. LIVES AT [facility]. ELLEN WILL BE UP HERE TO GET GUARDIANSHIP LETTER.
--- NOTE | 2019-07-16 15:47 | NUR ---
ELLEN VILLALBA HERE TO GET GUARDIANSHIP PAPER AND PATIENTS VISA CARD. THIS RN IN ROOM WHEN ELLEN RECEIVED VISA CARD.
--- NOTE | 2019-07-17 03:30 | NUR ---
68 year old Male 10 years [employer] [place] [facility] admitted with critically high creatinine level after several refusals of hemodialysis. PT has been living at [facility] for about six months but needs assist with DC plan to faciltate safe dc with dialysis 3 times weekly. PT with head CT showing diffuse brain atrophy & he had psych eval saying he needs assist as he has mental instability. SW referral for dc plan of Homeless needing regular dialysis. PT NPO for consult with DR Javier for lt upper chest wall perm cath & replacement. PT has multiple bilat upper chest wall scars says he has had multiple removals & replacements in past. Calm cooperative.
[2019-07-17 08:57] LABS: Albumin, Blood 3.4 g/dL (3.4-5.0); Anion Gap 7 mmol/L (6-16); Blood Urea Nitrogen 76 mg/dL (8-24); Bun/Creatinine Ratio 12.6 (12.0-20.0); CO2, Blood 29 mmol/L (21-32); Calcium, Blood 9.5 mg/dL (8.5-10.1); Chloride, Blood 101 mmol/L (98-108); Creatinine, Blood 6.05 mg/dL (0.60-1.20); Glomerular Filtration Rate 10 (60-); Glucose, Blood 107 mg/dL (70-99); Phosphorus, Blood 4.6 mg/dL (2.5-4.9); Potassium, Blood 5.6 mmol/L (3.5-5.5); Sodium, Blood 137 mmol/L (136-145)
--- NOTE | 2019-07-17 17:30 | NUR ---
SHIFT SUMMARY PATIENT DENIES PAIN, NAUSEA, AND SHORTNESS OF BREATH. PATIENT UP SBA IN ROOM W/4WW. PATIENT CONFUSED AND AGITATED THIS SHIFT. PATIENT AWARE HIS PERMACATH NEEDS TO BE REPLACED. PATIENT'S AGITATION INCREASED DURING THE DAY AND PATIENT WAS REPEATEDLY CALLING [employer] [facility] WHERE HE USED TO WORK. PATIENT ADVISED TO STOP CALLING. PATIENT WAS NPO UNTIL DINNER PENDING PERMACATH PROCEDURE. PERMACATH PROCEDURE AND DIALYSIS POSTPOSED UNTIL TOMORROW. PATIENT NPO AT MIDNIGHT. CALL LIGHT IN REACH.
--- NOTE | 2019-07-18 02:35 | NUR ---
DR Krueger in to see PT & discussed planned surgical procedure. PT has had dialysis perm caths removed previously & agrees to proceed with procedure but wishes he could have AV fistula for dialysis. says he will be making AV fistula in future for dialysis PT. PT asks to go bed early because he was awake most of night last night. Sleeping soundly on rounds.
--- NOTE | 2019-07-18 11:11 | NUR ---
PT TAKEN TO [facility] FOR PROCEDURE
[2019-07-18] MEDS ORDERED: FURO80 PO (12:09)
[2019-07-18] MEDS ORDERED: ACET325 PO (12:09)
[2019-07-18] MEDS ORDERED: LOKELMA10 GM PO (12:09)
--- NOTE | 2019-07-18 14:47 | NUR ---
pt up in chair to dialysis and plan is home. will f\u with clinic for AD
--- NOTE | 2019-07-18 17:59 | NUR ---
SUMMARY PT SITTING UP IN BED EATING DINNER, PT WAITING TO GET DIALYSIS TODAY, HE DID GET HIS DIALYSIS CATHETER REPLACED TODAY, SHARON PROCEDURE WELL, PT DISCHARGED TO HOME, [facility], TODAY, DISCHARGE HELD DUE TO DIALYSIS BEING SO LATE AND THE [facility] WILL NOT ALLOW ENTRANCE THIS LATE, DISCHARGE PLANNING AWARE AND HAVE BEEN IN CONTACT WITH THE GUARDIAN, NO ACUTE CHANGES, WILL CONT TO MONITOR
--- NOTE | 2019-07-19 04:13 | NUR ---
PT continues calm & cooperative post perm cath removal lt upper lateral chest wall & replacement lt upper chest wall. PT had dialysis ending at 2230 by [facility]. He is homeless & he hopes for safe dc plan. He had psych eval & DT [place] said PT unable to manage his financial or decision making & Guardianship recommended. PT also requesting assist with safe DC plan he does not want to return to Homeless long term at the [facility]. PT tolerated dialysis but removal site & new insertion site tender & painful. Tylenol 650 mg given with mild helpful effect. Discharge order from MD PT says he needs more time prior to discharge.
--- NOTE | 2019-07-19 11:32 | NUR ---
[facility], [facility] WILL BE ARRANGED AFTER LUNCH
--- NOTE | 2019-07-19 12:55 | NUR ---
DISCHARGE PT DIS[facility]GED [facility], PT VERBALIZED UNDERSTANDING OF DIALYSIS TOMORROW AND NO NEW MEDS, PT TAKEN OUT SAFELY VIA WHEELCHAIR, TRANSPORT ARRANGED [facility]
== END 2019-07-19 12:56 | disposition home or self-care (01) | DRG 314 ==
LOC: ER 18:01 → MEDS 20:53
PROVIDERS: Emergency Medicine; Hospitalist; Internal Medicine; Nurse Practitioner Acute Care; ADMIT Internal Medicine
PROC: 0JWTXXZ Revision of Tunneled Vascular Access Device in Trunk Subcutaneous Tissue and Fascia, External Approach (ICD-10-PCS; 2019-07-11)
PROC: 0J2TXYZ Change Other Device in Trunk Subcutaneous Tissue and Fascia, External Approach (ICD-10-PCS; principal; 2019-07-18)
DX: T82.49XA Other complication of vascular dialysis catheter, initial encounter (principal); N18.6 End stage renal disease; G92 Toxic encephalopathy; I48.20 Chronic atrial fibrillation, unspecified; I12.0 Hypertensive chronic kidney disease with stage 5 chronic kidney disease or end stage renal disease; Z91.15 Patient's noncompliance with renal dialysis; Z79.82 Long term (current) use of aspirin; F17.210 Nicotine dependence, cigarettes, uncomplicated; Z91.14 Patient's other noncompliance with medication regimen; R00.1 Bradycardia, unspecified; G30.0 Alzheimer's disease with early onset; F02.80 Dementia in other diseases classified elsewhere, unspecified severity, without behavioral disturbance, psychotic disturbance, mood disturbance, and anxiety; Z59.0 Homelessness; E87.5 Hyperkalemia; Z86.73 Personal history of transient ischemic attack (TIA), and cerebral infarction without residual deficits; D63.8 Anemia in other chronic diseases classified elsewhere; F32.9 Major depressive disorder, single episode, unspecified; Z99.2 Dependence on renal dialysis
CPT/HCPCS: 36415; 36581; 80048; 80053; 80069; 83605; 83735; 84100; 84443; 85014; 85018; 85025; 85610; 86317; 87040; 93005; 93010; 97166; 99152; 99153; 99285-25; A9270; C1750; C1769; J1644; J2250; J3010; J7040

== ENCOUNTER 2019-07-23 11:52 | Emergency (ER) | payer OTHER, MEDICARE ==
[~2019-07-23] VITALS: Ht 172.7 cm; Wt 75.3 kg
[~2019-07-23 11:52] MED LIST changes: +ACET325 PO; +BUPR150ER PO; +FURO80 PO; +LOKELMA10 GM PO
[2019-07-23 13:13] LABS: BASOPHILS ABSOLUTE AUTO 0.05 K/mm3 (0.00-0.23); BASOPHILS PERCENT AUTO 1 % (0-2); EOSINOPHILS ABSOLUTE AUTO 0.16 K/mm3 (0.00-0.68); EOSINOPHILS PERCENT AUTO 2 % (0-6); Hematocrit 30.3 % (37.0-53.0); Hemoglobin 9.7 g/dL (13.5-17.5); IMMATURE GRAN ABSOLUTE AUTO 0.05 K/mm3 (0.00-0.10); IMMATURE GRAN PERCENT AUTO 1 % (0-1); LYMPHOCYTES ABSOLUTE AUTO 1.59 K/mm3 (0.84-5.20); LYMPHOCYTES PERCENT AUTO 22 % (21-46); MONOCYTES ABSOLUTE AUTO 0.76 K/mm3 (0.16-1.47); MONOCYTES PERCENT AUTO 11 % (4-13); Mean Corpuscular HGB 32.9 pg (26.0-34.0); Mean Corpuscular Volume 103 fL (80-100); Mean Platelet Volume 10.5 fL (9.1-12.4); NEUTROPHILS ABSOLUTE AUTO 4.52 K/mm3 (1.96-9.15); NEUTROPHILS PERCENT AUTO 63 % (41-73); Platelet Count 161 K/mm3 (150-400); RDW Coefficient Variation 14.7 % (11.7-14.2); RDW Standard Deviation 55.4 fL (35.1-46.3); Red Blood Cell Count 2.95 M/mm3 (4.30-5.90); White Blood Cell Count 7.13 K/mm3 (4.00-11.30)
[2019-07-23 13:32] LABS: Albumin, Blood 3.2 g/dL (3.4-5.0); Albumin/Globulin Ratio 0.7 (0.8-1.8); Bilirubin, Total 0.4 mg/dL (0.1-1.0); Bun/Creatinine Ratio 11.3 (12.0-20.0); Calcium, Blood 8.6 mg/dL (8.5-10.1); Creatinine, Blood 6.18 mg/dL (0.60-1.20); Globulin, Blood 4.3 g/dL (2.2-4.0); Potassium, Blood 5.6 mmol/L (3.5-5.5); Total Protein, Blood 7.5 g/dL (6.4-8.2)
[2019-07-23 13:44] LABS: Source, Urine Clean Catch
[2019-07-23 13:53] LABS: Bilirubin, Urine Neg (Neg); Blood, Urine 1+ (Neg); Glucose Qualitative, Urine 2+ (Neg); Ketones, Urine Neg (Neg); Leukocyte Esterase, Urine Neg (Neg); Nitrite, Urine Neg (Neg); Protein, Urine 2+ (Neg); Urobilinogen, Urine NORM (Normal)
[2019-07-23 14:03] LABS: Appearance, Urine Clear (Clear); Color, Urine Pale Yellow (P-Yellow)
[2019-07-23 14:06] LABS: Bacteria Rare /hpf; Red Blood Cells, Urine 0-2 /hpf (0-2); Squamous Epithelial Cells Not Seen /hpf (Few); White Blood Cells, Urine 0-2 /hpf (0-5)
== END 2019-07-23 16:20 | disposition home or self-care (01) ==
LOC: ER 11:52
PROVIDERS: Emergency Medicine
DX: R19.7 Diarrhea, unspecified (principal); N18.6 End stage renal disease; D63.1 Anemia in chronic kidney disease; I48.91 Unspecified atrial fibrillation; F17.210 Nicotine dependence, cigarettes, uncomplicated; Z79.899 Other long term (current) drug therapy; Z79.82 Long term (current) use of aspirin
CPT/HCPCS: 36415; 80053; 81001; 85025; 93005; 93010; 99284-25

== ENCOUNTER 2019-07-30 11:45 | Emergency (ER) | payer OTHER, MEDICARE ==
[~2019-07-30] VITALS: Ht 175.3 cm; Wt 75.3 kg
== END 2019-07-30 14:14 | disposition home or self-care (01) ==
LOC: ER 11:45
DX: Z00.00 Encounter for general adult medical examination without abnormal findings (principal); I48.91 Unspecified atrial fibrillation; F17.210 Nicotine dependence, cigarettes, uncomplicated; Z91.018 Allergy to other foods; Z79.899 Other long term (current) drug therapy; Z79.82 Long term (current) use of aspirin
CPT/HCPCS: 71045; 99283-25

== ENCOUNTER 2019-08-08 07:00 | Day surgery (SDC) | payer OTHER, MEDICARE ==
[~2019-08-08] VITALS: Ht 172.7 cm; Wt 73.0 kg
--- NOTE | 2019-08-08 07:15 | NUR ---
PT HAD COVID TEST YESTERDAY (08/08/2019) HOWEVER THIS WAS A SEND OUT LAB TEST. NO RESULTS OF NOW/PENDING. PT DENIES ANY SIGNS OR SYMPTOMS. NO FEVER, COUGH, CHILLS, OR BEEN EXPOSED TO ANYONE WITH THE VIRUS. VITAL SIGNS WITHIN NORMAL LIMITS
--- NOTE | 2019-08-08 09:07 | NUR ---
PT TO RECOVERY ROOM POST PROCEDURE. PT ALERT AND ORIENTED, COOPERATIVE, DENIES PAIN POST PROCEDURE. MONITOR AFIB 910'S, B/P 167/76, AFEBRILE, SPO2 100% RA. L CHEST PERMCATH SITE NO SWELLNG/HEMATOMA, GAUZE AND TAPE DRSG INTACT.
--- NOTE | 2019-08-08 10:00 | NUR ---
PT TOOK BREAKFAST WITHOUT ISSUE.
--- NOTE | 2019-08-08 10:35 | NUR ---
PT DRESSED SELF WITHOUT ISSUE, IV REMOVED-CANNULA INTACT. PT RECEIVED DISCHARGE INSTRUCTIONS, MED LIST AND AFTER CARE INSTRUCTIONS; VERBALIZED GOOD UNDERSTANDING.
--- NOTE | 2019-08-08 10:43 | NUR ---
PT GOING TO DIALYSIS POST PROCEDURE VIA [facility]IAL A R[facility], PT LEFT FACILITY; CONDITION STABLE.
== END 2019-08-08 10:43 | disposition home or self-care (01) ==
LOC: MHTC 07:00
DX: Z45.2 Encounter for adjustment and management of vascular access device (principal); I12.0 Hypertensive chronic kidney disease with stage 5 chronic kidney disease or end stage renal disease; N18.6 End stage renal disease; D63.1 Anemia in chronic kidney disease; F17.210 Nicotine dependence, cigarettes, uncomplicated; Z91.018 Allergy to other foods; Z99.2 Dependence on renal dialysis; Z79.899 Other long term (current) drug therapy
CPT/HCPCS: 36581; 99152; 99153; C1750; C1769; C1894; J1644; J7040

== ENCOUNTER 2019-09-10 09:23 | Emergency (ER) | payer OTHER, MEDICARE ==
[~2019-09-10] VITALS: Ht 172.7 cm; Wt 72.6 kg
[2019-09-10] MEDS ORDERED: ATOR20 PO (09:32)
[2019-09-10] MEDS ORDERED: SERT25 PO (09:33)
[2019-09-10] MEDS ORDERED: SEVE800 PO (09:33)
[2019-09-10 10:29] LABS: Bun/Creatinine Ratio 10.6 (12.0-20.0); Creatinine, Blood 7.65 mg/dL (0.60-1.20); Potassium, Blood 5.8 mmol/L (3.5-5.5)
[2019-09-10 10:30] LABS: BASOPHILS ABSOLUTE AUTO 0.04 K/mm3 (0.00-0.23); BASOPHILS PERCENT AUTO 0 % (0-2); EOSINOPHILS ABSOLUTE AUTO 0.19 K/mm3 (0.00-0.68); EOSINOPHILS PERCENT AUTO 2 % (0-6); Hematocrit 36.2 % (37.0-53.0); Hemoglobin 11.3 g/dL (13.5-17.5); IMMATURE GRAN ABSOLUTE AUTO 0.06 K/mm3 (0.00-0.10); IMMATURE GRAN PERCENT AUTO 1 % (0-1); LYMPHOCYTES ABSOLUTE AUTO 0.96 K/mm3 (0.84-5.20); LYMPHOCYTES PERCENT AUTO 10 % (21-46); MONOCYTES ABSOLUTE AUTO 0.86 K/mm3 (0.16-1.47); MONOCYTES PERCENT AUTO 9 % (4-13); Mean Corpuscular HGB 33.3 pg (26.0-34.0); Mean Corpuscular HGB Conc 31.2 g/dL (31.5-36.5); Mean Corpuscular Volume 107 fL (80-100); Mean Platelet Volume 10.3 fL (9.1-12.4); NEUTROPHILS ABSOLUTE AUTO 7.26 K/mm3 (1.96-9.15); NEUTROPHILS PERCENT AUTO 78 % (41-73); Platelet Count 160 K/mm3 (150-400); RDW Coefficient Variation 14.3 % (11.7-14.2); RDW Standard Deviation 56.2 fL (35.1-46.3); Red Blood Cell Count 3.39 M/mm3 (4.30-5.90); White Blood Cell Count 9.37 K/mm3 (4.00-11.30)
[2019-09-10 10:50] LABS: International Normalized Ratio 1.02; Prothrombin Time Results 10.9 Sec (9.7-11.5)
[2019-09-26] MEDS ORDERED: CLOP75 PO (18:55)
== END 2019-09-10 12:01 | disposition home or self-care (01) ==
LOC: ER 09:23
PROVIDERS: Physician Assistant
DX: R04.0 Epistaxis (principal); N18.6 End stage renal disease; Z99.2 Dependence on renal dialysis; E87.5 Hyperkalemia; Z91.018 Allergy to other foods; Z79.82 Long term (current) use of aspirin; Z79.899 Other long term (current) drug therapy; I48.91 Unspecified atrial fibrillation; Z86.73 Personal history of transient ischemic attack (TIA), and cerebral infarction without residual deficits; F17.210 Nicotine dependence, cigarettes, uncomplicated
CPT/HCPCS: 36415; 70487; 80048; 85025; 85610; 96374; 99284-25; J3010; Q9967

== ENCOUNTER 2020-01-15 14:39 | Emergency (ER) | payer OTHER, MEDICARE ==
[~2020-01-15] VITALS: Ht 172.7 cm; Wt 80.3 kg
[~2020-01-15 14:39] MED LIST changes: +ATOR20 PO; +CLOP75 PO
== END 2020-01-15 18:00 | disposition home or self-care (01) ==
LOC: ER 14:39
DX: S70.02XA Contusion of left hip, initial encounter (principal); I48.91 Unspecified atrial fibrillation; N18.6 End stage renal disease; F17.210 Nicotine dependence, cigarettes, uncomplicated; Z79.02 Long term (current) use of antithrombotics/antiplatelets; Z91.018 Allergy to other foods; Z79.899 Other long term (current) drug therapy; W18.30XA Fall on same level, unspecified, initial encounter
CPT/HCPCS: 73502; 99283-25

== ENCOUNTER → 2020-01-22 | Outpatient (CLI) | payer MEDICARE, OTHER ==
[2020-01-23 15:01] LABS: Appearance, Urine Clear (Clear); Bilirubin, Urine Neg (Neg); Blood, Urine 1+ (Neg); Color, Urine Yellow (P-Yellow); Glucose Qualitative, Urine 3+ (Neg); Ketones, Urine Neg (Neg); Leukocyte Esterase, Urine Neg (Neg); Nitrite, Urine Neg (Neg); Protein, Urine 3+ (Neg); Urobilinogen, Urine NORM (Normal)
[2020-01-23 15:25] LABS: Bacteria Rare /hpf; Squamous Epithelial Cells Not Seen /hpf (Few); White Blood Cells, Urine 0-2 /hpf (0-5)
== END | disposition home or self-care (01) ==
LOC: LAB SHORT 15:00 → LAB 15:00
PROVIDERS: Nurse Practitioner
DX: N39.0 Urinary tract infection, site not specified (principal)
CPT/HCPCS: 81001; 87086

== ENCOUNTER 2020-02-06 11:40 | Day surgery (SDC) | payer OTHER, MEDICARE ==
[~2020-02-06] VITALS: Ht 172.7 cm; Wt 81.0 kg
[2020-02-06 12:53] LABS: Influenza A, PCR Negative (NEGATIVE); Influenza B, PCR Negative (NEGATIVE); Resp Syncytial Virus, PCR Negative (NEGATIVE); SARS-Cov-2 (COVID-19) PCR, MMC Negative (NEGATIVE)
[2020-02-06] MEDS ORDERED: Aspir 8181 MG PO (13:21)
--- NOTE | 2020-02-06 14:38 | NUR ---
RACW PERM CATH REMOVAL SITE NO HEMATOMA, NO BLEEDING, SOFT WITH INTACT DRESSING. CALL LIGHT IN REACH.
--- NOTE | 2020-02-06 14:49 | NUR ---
PT EATING LUNCH; NO CHANGES TO RACW SITE.
--- NOTE | 2020-02-06 15:54 | NUR ---
PATIENT ATE LUNCH AND TOLERATED WILL. VVS. LEFT CHEST WALL SITE IS CDI WITH CLOTH DOT IN PLACE. ARRANGED FOR TRANSPORTATION FROM [facility] BACK TO [facility]. I ALSO NOTIFIED BENY THAT THE PATIENT MISSED [facility] SESSION AND WILL BE AT HIS NEXT SESSION ON TUESDAY. THEY WILL REMOVE THE STITCH TO THE [facility] HD CATHETER SITE IN ONE WEEK. ORDER SENT WITH THE PAITENT. CALLED A GAVE REPORT TO STAFF AT [facility] REGARDING CARE AND MEDICATION ORDERS AND COPIES SENT WITH THE PATIENT. PIV TO THE RIGHT FOREARM DISCONTINUED AND PRESSURE DRESSING APPLIED. PATIENT HAS DISCHARGE INSTRUCTIONS ON HIS PERSON FOR THE STAFF AT [facility]. ALL BELONGSING WITH THE PATIENT AND HE IS FULLY DRESSED AND HAS WALKER. [facility] TRANSPORT ARRANGED FOR THE PATIENT DISCHARGE.
== END 2020-02-06 22:58 | disposition home or self-care (01) ==
LOC: MHTC 11:40
PROVIDERS: Anesthesiology
DX: Z01.812 Encounter for preprocedural laboratory examination (principal); N18.6 End stage renal disease; D63.1 Anemia in chronic kidney disease; I48.91 Unspecified atrial fibrillation; D69.6 Thrombocytopenia, unspecified; F17.210 Nicotine dependence, cigarettes, uncomplicated; Z91.018 Allergy to other foods; Z91.048 Other nonmedicinal substance allergy status; Z79.02 Long term (current) use of antithrombotics/antiplatelets; Z79.82 Long term (current) use of aspirin; Z99.2 Dependence on renal dialysis; Z79.899 Other long term (current) drug therapy
CPT/HCPCS: 0241U; J0690; J2250; J3010; J7040

== ENCOUNTER → 2020-05-20 | Outpatient (CLI) | payer MEDICARE, OTHER ==
[2020-05-20 15:52] LABS: Appearance, Urine Clear (Clear); Bilirubin, Urine Neg (Neg); Blood, Urine Neg (Neg); Color, Urine Yellow (P-Yellow); Glucose Qualitative, Urine 2+ (Neg); Ketones, Urine Neg (Neg); Leukocyte Esterase, Urine 1+ (Neg); Nitrite, Urine Neg (Neg); Protein, Urine 2+ (Neg); Specific Gravity, Urine 1.015 (1.003-1.022); Urobilinogen, Urine NORM (Normal)
[2020-05-20 16:37] LABS: Bacteria Mod /hpf; Red Blood Cells, Urine 0-2 /hpf (0-2); Squamous Epithelial Cells Rare /hpf (Few)
== END ==
LOC: LAB 13:36 → LAB SHORT 13:36
PROVIDERS: Nurse Practitioner
DX: N39.0 Urinary tract infection, site not specified (principal)
CPT/HCPCS: 81001; 87086

== ENCOUNTER → 2020-10-11 | Outpatient (CLI) | payer OTHER, MEDICARE | END | disposition home or self-care (01) | LOC: LAB SHORT 09:00 → LAB 09:00 | DX: Z03.818 Encounter for observation for suspected exposure to other biological agents ruled out (principal) | CPT/HCPCS: U0003 ==

== ENCOUNTER → 2020-10-17 | Outpatient (CLI) | payer MEDICARE, OTHER | LOC: LAB 12:51 → LAB SHORT 12:51 | DX: Z20.822 Contact with and (suspected) exposure to COVID-19 (principal); Z91.018 Allergy to other foods; Z91.09 Other allergy status, other than to drugs and biological substances | CPT/HCPCS: U0003 ==

== ENCOUNTER 2020-10-29 11:38 | Emergency (ER) | payer MEDICARE, OTHER ==
[~2020-10-29] VITALS: Ht 172.7 cm; Wt 80.7 kg
== END 2020-10-29 16:00 | disposition home or self-care (01) ==
LOC: ER 11:38
DX: M54.2 Cervicalgia (principal); I48.91 Unspecified atrial fibrillation; N18.6 End stage renal disease; D63.1 Anemia in chronic kidney disease; Z91.018 Allergy to other foods; Z79.899 Other long term (current) drug therapy; Z79.02 Long term (current) use of antithrombotics/antiplatelets; Z79.82 Long term (current) use of aspirin; W18.30XA Fall on same level, unspecified, initial encounter
CPT/HCPCS: 36415; 70450; 72125; 99284-25; A9270

== ENCOUNTER 2020-11-07 11:19 | Emergency (ER) | payer MEDICARE, OTHER ==
[~2020-11-07] VITALS: Ht 172.7 cm; Wt 80.7 kg
[2020-11-07] MEDS ORDERED: Methocarbamol750 MG (11:43)
[2020-11-07] MEDS ORDERED: RENVELA800 MG PO (11:46)
[2020-11-07 12:50] LABS: BASOPHILS ABSOLUTE AUTO 0.04 K/mm3 (0.00-0.23); BASOPHILS PERCENT AUTO 1 % (0-2); EOSINOPHILS ABSOLUTE AUTO 0.25 K/mm3 (0.00-0.68); EOSINOPHILS PERCENT AUTO 4 % (0-6); Hematocrit 31.1 % (37.0-53.0); Hemoglobin 10.1 g/dL (13.5-17.5); IMMATURE GRAN ABSOLUTE AUTO 0.03 K/mm3 (0.00-0.10); IMMATURE GRAN PERCENT AUTO 0 % (0-1); LYMPHOCYTES ABSOLUTE AUTO 0.77 K/mm3 (0.84-5.20); LYMPHOCYTES PERCENT AUTO 11 % (21-46); MONOCYTES ABSOLUTE AUTO 0.54 K/mm3 (0.16-1.47); MONOCYTES PERCENT AUTO 8 % (4-13); Mean Corpuscular HGB 33.6 pg (26.0-34.0); Mean Corpuscular HGB Conc 32.5 g/dL (31.5-36.5); Mean Corpuscular Volume 103 fL (80-100); Mean Platelet Volume 9.6 fL (9.1-12.4); NEUTROPHILS ABSOLUTE AUTO 5.39 K/mm3 (1.96-9.15); NEUTROPHILS PERCENT AUTO 77 % (41-73); Platelet Count 179 K/mm3 (150-400); RDW Coefficient Variation 13.3 % (11.7-14.2); RDW Standard Deviation 51.4 fL (35.1-46.3); Red Blood Cell Count 3.01 M/mm3 (4.30-5.90); White Blood Cell Count 7.02 K/mm3 (4.00-11.30)
[2020-11-07 13:10] LABS: Albumin, Blood 3.5 g/dL (3.4-5.0); Albumin/Globulin Ratio 0.9 (0.8-1.8); Bilirubin, Total 0.3 mg/dL (0.1-1.0); Bun/Creatinine Ratio 11.5 (12.0-20.0); Calcium, Blood 9.3 mg/dL (8.5-10.1); Creatinine, Blood 7.33 mg/dL (0.60-1.20); Globulin, Blood 4.1 g/dL (2.2-4.0); Potassium, Blood 5.3 mmol/L (3.5-5.5); Total Protein, Blood 7.6 g/dL (6.4-8.2)
[2020-11-07] MEDS ORDERED: ONDA4ODT MM (13:30)
== END 2020-11-07 14:31 | disposition home or self-care (01) ==
LOC: ER 11:19
PROVIDERS: Emergency Medicine
DX: R11.2 Nausea with vomiting, unspecified (principal); K59.00 Constipation, unspecified; N18.6 End stage renal disease; I48.91 Unspecified atrial fibrillation; Z91.018 Allergy to other foods; Z79.899 Other long term (current) drug therapy; Z79.02 Long term (current) use of antithrombotics/antiplatelets; Z79.82 Long term (current) use of aspirin; Z99.2 Dependence on renal dialysis
CPT/HCPCS: 36415; 74022; 80053; 85025; 99284-25

== ENCOUNTER → 2020-11-11 | Outpatient (CLI) | payer MEDICARE, OTHER ==
[~2020-11-11] MED LIST changes: +MIDO5 PO; +Methocarbamol750 MG; +ONDA4ODT MM; +RENVELA800 MG PO
[2020-11-13 15:47] LABS: CORONAVIRUS (COVID19) CSH-NRL Negative (Negative)
== END | disposition home or self-care (01) ==
LOC: LAB SHORT 10:58 → LAB 10:58 → LAB SHORT 11-12 10:58
PROVIDERS: Nurse Practitioner
DX: Z20.822 Contact with and (suspected) exposure to COVID-19 (principal)
CPT/HCPCS: U0003

== ENCOUNTER → 2020-11-18 | Outpatient (CLI) | payer MEDICARE, OTHER ==
[~2020-11-18] MED LIST changes: -MIDO5 PO
[2020-11-20 17:44] LABS: CORONAVIRUS (COVID19) CSH-NRL Negative (Negative)
== END ==
LOC: LAB 15:48 → LAB SHORT 15:48
PROVIDERS: Anesthesiology
DX: Z01.812 Encounter for preprocedural laboratory examination (principal); Z20.822 Contact with and (suspected) exposure to COVID-19
CPT/HCPCS: U0003

== ENCOUNTER 2020-11-26 19:03 | Emergency (ER) | payer MEDICARE, OTHER ==
[~2020-11-26] VITALS: Ht 182.9 cm; Wt 85.3 kg
[2020-11-26 20:14] LABS: Anion Gap 4 mmol/L (6-16); Blood Urea Nitrogen 15 mg/dL (8-24); Bun/Creatinine Ratio 6.3 (12.0-20.0); CO2, Blood 37 mmol/L (21-32); Chloride, Blood 95 mmol/L (98-108); Creatinine, Blood 2.38 mg/dL (0.60-1.20); Glomerular Filtration Rate 27 (60-); Glucose, Blood 111 mg/dL (70-99); Magnesium, Blood 2.3 mg/dL (1.6-2.4); Potassium, Blood 3.3 mmol/L (3.5-5.5); Sodium, Blood 136 mmol/L (136-145); Troponin I <0.015 ng/mL (0.000-0.040)
[2020-11-26 21:41] LABS: BASOPHILS ABSOLUTE AUTO 0.02 K/mm3 (0.00-0.23); BASOPHILS PERCENT AUTO 0 % (0-2); EOSINOPHILS ABSOLUTE AUTO 0.15 K/mm3 (0.00-0.68); EOSINOPHILS PERCENT AUTO 3 % (0-6); Hematocrit 28.2 % (37.0-53.0); Hemoglobin 9.3 g/dL (13.5-17.5); IMMATURE GRAN ABSOLUTE AUTO 0.01 K/mm3 (0.00-0.10); IMMATURE GRAN PERCENT AUTO 0 % (0-1); LYMPHOCYTES ABSOLUTE AUTO 0.93 K/mm3 (0.84-5.20); LYMPHOCYTES PERCENT AUTO 18 % (21-46); MONOCYTES ABSOLUTE AUTO 0.75 K/mm3 (0.16-1.47); MONOCYTES PERCENT AUTO 15 % (4-13); Mean Corpuscular HGB 33.8 pg (26.0-34.0); Mean Corpuscular Volume 103 fL (80-100); Mean Platelet Volume 9.6 fL (9.1-12.4); NEUTROPHILS ABSOLUTE AUTO 3.33 K/mm3 (1.96-9.15); NEUTROPHILS PERCENT AUTO 64 % (41-73); Platelet Count 135 K/mm3 (150-400); RDW Coefficient Variation 13.9 % (11.7-14.2); RDW Standard Deviation 52.5 fL (35.1-46.3); Red Blood Cell Count 2.75 M/mm3 (4.30-5.90); White Blood Cell Count 5.19 K/mm3 (4.00-11.30)
[2020-11-26] MEDS ORDERED: MIDO5 PO (22:52)
== END 2020-11-27 00:40 | disposition home or self-care (01) ==
LOC: ER 19:03
PROVIDERS: Student in an Organized Health Care Education/Training Program
DX: I95.1 Orthostatic hypotension (principal); D69.6 Thrombocytopenia, unspecified; I48.91 Unspecified atrial fibrillation; N18.6 End stage renal disease; F17.210 Nicotine dependence, cigarettes, uncomplicated; Z91.018 Allergy to other foods; Z79.899 Other long term (current) drug therapy; Z79.02 Long term (current) use of antithrombotics/antiplatelets; Z79.82 Long term (current) use of aspirin; Z99.2 Dependence on renal dialysis
CPT/HCPCS: 36415; 80048; 83735; 84484; 85025; 93005; 93010; 99284-25; A9270; J7030

== ENCOUNTER 2021-01-16 19:34 | Emergency (ER) | payer MEDICARE, OTHER ==
[~2021-01-16] VITALS: Ht 182.9 cm; Wt 84.8 kg
[~2021-01-16 19:34] MED LIST changes: +MIDO5 PO
[2021-01-16 19:57] LABS: BASOPHILS ABSOLUTE AUTO 0.02 K/mm3 (0.00-0.23); BASOPHILS PERCENT AUTO 0 % (0-2); EOSINOPHILS ABSOLUTE AUTO 0.18 K/mm3 (0.00-0.68); EOSINOPHILS PERCENT AUTO 3 % (0-6); Hematocrit 31.9 % (37.0-53.0); Hemoglobin 10.3 g/dL (13.5-17.5); IMMATURE GRAN ABSOLUTE AUTO 0.03 K/mm3 (0.00-0.10); IMMATURE GRAN PERCENT AUTO 1 % (0-1); LYMPHOCYTES ABSOLUTE AUTO 0.82 K/mm3 (0.84-5.20); LYMPHOCYTES PERCENT AUTO 13 % (21-46); MONOCYTES ABSOLUTE AUTO 0.74 K/mm3 (0.16-1.47); MONOCYTES PERCENT AUTO 11 % (4-13); Mean Corpuscular HGB 33.8 pg (26.0-34.0); Mean Corpuscular HGB Conc 32.3 g/dL (31.5-36.5); Mean Corpuscular Volume 105 fL (80-100); Mean Platelet Volume 9.6 fL (9.1-12.4); NEUTROPHILS ABSOLUTE AUTO 4.69 K/mm3 (1.96-9.15); NEUTROPHILS PERCENT AUTO 72 % (41-73); Platelet Count 156 K/mm3 (150-400); RDW Coefficient Variation 13.4 % (11.7-14.2); RDW Standard Deviation 51.7 fL (35.1-46.3); Red Blood Cell Count 3.05 M/mm3 (4.30-5.90); White Blood Cell Count 6.48 K/mm3 (4.00-11.30)
[2021-01-16 20:15] LABS: Alanine Aminotransfer (ALT/SGP 11 U/L (12-78); Albumin, Blood 3.3 g/dL (3.4-5.0); Albumin/Globulin Ratio 0.8 (0.8-1.8); Alk Phos 115 U/L (50-136); Anion Gap 5 mmol/L (6-16); Aspartate Aminotrans (AST/SGOT 9 U/L (12-37); Bilirubin, Total 0.4 mg/dL (0.1-1.0); Blood Urea Nitrogen 19 mg/dL (8-24); Bun/Creatinine Ratio 5.7 (12.0-20.0); CO2, Blood 39 mmol/L (21-32); Chloride, Blood 94 mmol/L (98-108); Creatinine, Blood 3.32 mg/dL (0.60-1.20); Globulin, Blood 4.1 g/dL (2.2-4.0); Glomerular Filtration Rate 18 (60-); Glucose, Blood 125 mg/dL (70-99); Potassium, Blood 3.3 mmol/L (3.5-5.5); Sodium, Blood 138 mmol/L (136-145); Total Protein, Blood 7.4 g/dL (6.4-8.2); Troponin I <0.015 ng/mL (0.000-0.040)
== END 2021-01-17 02:45 | disposition home or self-care (01) ==
LOC: ER 19:34
PROVIDERS: Emergency Medicine
DX: I95.9 Hypotension, unspecified (principal); E86.1 Hypovolemia; I48.91 Unspecified atrial fibrillation; N18.6 End stage renal disease; Z99.2 Dependence on renal dialysis; F17.210 Nicotine dependence, cigarettes, uncomplicated; Z91.018 Allergy to other foods; Z88.8 Allergy status to other drugs, medicaments and biological substances; Z79.899 Other long term (current) drug therapy; Z79.82 Long term (current) use of aspirin
CPT/HCPCS: 36415; 80053; 84484; 85025; 93005; 93010; 99284-25; A9270; J7030

== ENCOUNTER 2021-02-09 17:57 | Emergency (ER) | payer OTHER ==
[~2021-02-09] VITALS: Ht 182.9 cm; Wt 79.8 kg
[2021-02-09] MEDS ORDERED: Acetaminophen325 M1 PO (18:39)
[2021-02-09] MEDS ORDERED: DULCOLAX400 MG/5 M PO (18:40)
[2021-02-09 19:10] LABS: Calcium, Ionized (POC) 1.07 mmol/L (1.10-1.46); Chloride (POC) 87 mmol/L (98-108); Creatinine (POC) 2.6 mg/dL (0.8-1.3); Glucose (ISTAT POC) 117 mg/dL (70-99); Hemoglobin (POC) 11.6 g/dL (13.5-17.5); Potassium (POC) 3.8 mmol/L (3.5-5.5); Sodium (POC) 136 mmol/L (135-148); Total CO2 (POC) 36 mmol/L (21-32)
== END 2021-02-09 19:50 | disposition home or self-care (01) ==
LOC: ER 17:57
PROVIDERS: Emergency Medicine
DX: F03.90 Unspecified dementia, unspecified severity, without behavioral disturbance, psychotic disturbance, mood disturbance, and anxiety (principal); N18.6 End stage renal disease; Z91.018 Allergy to other foods; Z79.82 Long term (current) use of aspirin; Z79.899 Other long term (current) drug therapy; I48.91 Unspecified atrial fibrillation; Z99.2 Dependence on renal dialysis; F17.210 Nicotine dependence, cigarettes, uncomplicated; W19.XXXA Unspecified fall, initial encounter
CPT/HCPCS: 36415; 80047; 85014; 93005; 93010; 99284-25

== ENCOUNTER 2021-03-03 20:20 | Emergency (ER) | payer OTHER ==
[~2021-03-03] VITALS: Ht 172.7 cm; Wt 78.5 kg
[~2021-03-03 20:20] MED LIST changes: +Acetaminophen325 M1 PO; +DULCOLAX400 MG/5 M PO
== END 2021-03-04 00:19 | disposition home or self-care (01) ==
LOC: ER 20:20
DX: S51.811A Laceration without foreign body of right forearm, initial encounter (principal); M25.511 Pain in right shoulder; I48.91 Unspecified atrial fibrillation; F17.210 Nicotine dependence, cigarettes, uncomplicated; Z79.899 Other long term (current) drug therapy; W19.XXXA Unspecified fall, initial encounter
CPT/HCPCS: 73030; 99284-25; A9270

== ENCOUNTER 2021-05-11 11:07 | Observation (INO) | payer OTHER ==
[~2021-05-11] VITALS: Ht 172.7 cm; Wt 78.5 kg
[2021-05-11 11:36] LABS: BASOPHILS ABSOLUTE AUTO 0.04 K/mm3 (0.00-0.23); BASOPHILS PERCENT AUTO 1 % (0-2); EOSINOPHILS ABSOLUTE AUTO 0.41 K/mm3 (0.00-0.68); EOSINOPHILS PERCENT AUTO 5 % (0-6); Hematocrit 30.2 % (37.0-53.0); Hemoglobin 9.6 g/dL (13.5-17.5); IMMATURE GRAN ABSOLUTE AUTO 0.05 K/mm3 (0.00-0.10); IMMATURE GRAN PERCENT AUTO 1 % (0-1); LYMPHOCYTES PERCENT AUTO 6 % (21-46); MONOCYTES ABSOLUTE AUTO 0.69 K/mm3 (0.16-1.47); MONOCYTES PERCENT AUTO 8 % (4-13); Mean Corpuscular HGB 33.4 pg (26.0-34.0); Mean Corpuscular HGB Conc 31.8 g/dL (31.5-36.5); Mean Corpuscular Volume 105 fL (80-100); Mean Platelet Volume 9.9 fL (9.1-12.4); NEUTROPHILS ABSOLUTE AUTO 6.73 K/mm3 (1.96-9.15); NEUTROPHILS PERCENT AUTO 80 % (41-73); Platelet Count 197 K/mm3 (150-400); RDW Coefficient Variation 15.2 % (11.7-14.2); Red Blood Cell Count 2.87 M/mm3 (4.30-5.90); White Blood Cell Count 8.42 K/mm3 (4.00-11.30)
[2021-05-11] MEDS ORDERED: DONE5 PO (12:04)
[2021-05-11 12:10] LABS: Albumin, Blood 3.2 g/dL (3.4-5.0); Albumin/Globulin Ratio 0.8 (0.8-1.8); Bilirubin, Total 0.4 mg/dL (0.1-1.0); Bun/Creatinine Ratio 9.7 (12.0-20.0); Calcium, Blood 9.2 mg/dL (8.5-10.1); Creatinine, Blood 5.27 mg/dL (0.60-1.20); Globulin, Blood 4.2 g/dL (2.2-4.0); Potassium, Blood 4.3 mmol/L (3.5-5.5); Total Protein, Blood 7.4 g/dL (6.4-8.2)
--- NOTE | 2021-05-11 12:59 | NUR ---
Pt in ER large neruolgical event. contacted pt POA to review the choice the physician explained. Pt has an advance directive that states no further excalation of care. The pt is well know to this journalists and other writers. He has had great suffering in his life and his friend Boone has supported him. He has long been estranged from his son. Call made to Boone and witnessed by ER staff. Boone relays he has been declining lately and showing sign of more memory and cognative slowing and impairment. Boone relays Staff at correction have been struggling with him and he has been falling. Notified bindery manager and called [facility] with update to start hospice plan. Updated admitting physician.
--- NOTE | 2021-05-11 14:53 | NUR ---
ADMIT PATIENT ADMITTED ON COMFORT CARE. ADMISSION DONE. PATIENT SETTLED INTO ROOM. MEDICATED FOR PAIN IN HEAD. REPOSITIONED. PATIENT SLEEPING COMFORTABLY.
--- NOTE | 2021-05-12 04:34 | NUR ---
SHIFT SUMMARY PATIENT ON COMFORT CARE DENIES PAIN THROUGH OUT THE SHIFT ABLE TO SELF TURN INCONTNENT CARE DONE BY STAFF.NO ACUTE CHANGE NOTED
[2021-05-12] MEDS ORDERED: LORA1 PO (11:47)
[2021-05-12] MEDS ORDERED: MORP20L SL (11:47)
--- NOTE | 2021-05-12 13:58 | NUR ---
SUMMARY/DISCHARGE PT BEING DISCHARGED TO HOME WITH HOSPICE, PT LIVES AT [facility], STAFF FROM [facility] HAVE ALREADY BEEN HERE TO SEE THE PT, CURRENTLY WAITING FOR TRANSPORTATION
--- NOTE | 2021-05-12 14:56 | NUR ---
PT DISCHARGED BACK TO [facility], PT BEING TRANSPORTED BACK VIA [facility]
== END 2021-05-12 14:56 | disposition hospice, home (50) ==
LOC: ER 11:07 → MEDS 11:08 → ER 13:26 → MEDS 13:26
PROVIDERS: Emergency Medicine; ADMIT Internal Medicine
DX: S06.5X0A Traumatic subdural hemorrhage without loss of consciousness, initial encounter (principal); S00.03XA Contusion of scalp, initial encounter; W01.198A Fall on same level from slipping, tripping and stumbling with subsequent striking against other object, initial encounter; G30.0 Alzheimer's disease with early onset; F02.80 Dementia in other diseases classified elsewhere, unspecified severity, without behavioral disturbance, psychotic disturbance, mood disturbance, and anxiety; N18.6 End stage renal disease; D63.8 Anemia in other chronic diseases classified elsewhere; E87.1 Hypo-osmolality and hyponatremia; I48.20 Chronic atrial fibrillation, unspecified; F17.200 Nicotine dependence, unspecified, uncomplicated; Z66 Do not resuscitate; Z88.8 Allergy status to other drugs, medicaments and biological substances; Z91.018 Allergy to other foods; Z86.73 Personal history of transient ischemic attack (TIA), and cerebral infarction without residual deficits
CPT/HCPCS: 36415; 70450; 72125; 80053; 85025; 93005; 93010; A9270; G0378